=== PATIENT | male | born 1995 | race African-American/Black ===

== ENCOUNTER 2016-10-18 19:45 | Inpatient (IN) | payer SELFPAY ==
[~2016-10-18] VITALS: Ht 188 cm; Wt 82.1 kg
[2016-10-18] MEDS ORDERED: PROPOFOL 50 ML IV ONE (20:02)
[2016-10-18 20:06] LABS: BASO % 1 % (0-3); EOS % 1 % (0-3); HEMATOCRIT 48.6 % (39.0-53.0); HEMOGLOBIN 16.8 g/dL (13.0-17.5); LYMPH # 1.8 x10^3/uL (1.0-4.8); LYMPH % 41 % (24-48); MEAN CORPUSCULAR HEMOGLOBIN 29 pg (25-35); MEAN CORPUSCULAR HGB CONC 35 g/dL (31-37); MEAN CORPUSCULAR VOLUME 83 fL (79-100); MONO % 13 % (0-9); NEUT % 45 % (31-73); PLATELET COUNT 277 x10^3/uL (140-400); RED BLOOD COUNT 5.83 x10^6/uL (4.30-5.70); RED CELL DISTRIBUTION WIDTH 13.7 % (11.5-14.5); WHITE BLOOD COUNT 4.4 x10^3/uL (4.0-11.0)
[2016-10-18] MEDS: PROPOFOL 100 ML IV PRN ×2 (20:09→22:29)
[2016-10-18] MEDS: PROPOFOL 20 ML IV ONE ×2 (20:09→20:47)
[2016-10-18 20:14] LABS: CALCIUM 9.2 mg/dL (8.5-10.1); CREATININE 1.1 mg/dL (0.7-1.3); POTASSIUM 3.8 mmol/L (3.5-5.1)
[2016-10-18] MEDS ORDERED: ONDANSETRON PF 4 MG/2 ML VIAL. IV ONE (20:15)
[2016-10-18] MEDS ORDERED: IV NORMAL SALINE 1000ML BAG 1,000 ML IV ONE (20:15)
[2016-10-18] MEDS ORDERED: SUCCINYLCHOLINE 200 MG/10 ML VIAL. IV ONE (20:15)
[2016-10-18] MEDS ORDERED: ETOMIDATE 20 MG/10 ML VIAL. IV ONE (20:15)
[2016-10-18 20:26] LABS: ALBUMIN 4.1 g/dL (3.4-5.0); ALBUMIN/GLOBULIN RATIO 0.8 (1.0-1.7); TOTAL BILIRUBIN 0.4 mg/dL (0.2-1.0); TOTAL PROTEIN 9.2 g/dL (6.4-8.2)
[2016-10-18 20:41] LABS: ETHANOL 340 mg/dL (0-10)
--- NOTE | 2016-10-18 20:41 | PHYS DOC ---
Adult General Chief Complaint Chief Complaint: SEIZURE HPI HPI 21-year-old male who presents in status epilepticus by EMS. Upon EMS arrival, the patient was actively convulsing and having seizure-like activity. 2 IM doses of Versed were given without relief of seizure activity. Patient presents actively convulsing and seizing and cannot provide an adequate history. 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 She is unsure if there is any other significant past medical problems. Review of Systems Review of Systems A 10 point review systems is unable to be obtained secondary to the patient's underlying mental status. Current Medications Current Medications Current Medications Medications (Trade) Dose Ordered Sig/Wilder Start Time Stop Time Status Last Admin Dose Admin Etomidate (Amidate) 20 mg 1X ONCE 10/18/16 20:15 10/18/16 20:16 DC 10/18/16 19:55 20 MG Lorazepam (Ativan) 2 mg 1X ONCE 10/18/16 20:15 10/18/16 20:16 DC 10/18/16 19:45 2 MG Ondansetron HCl (Zofran) 4 mg 1X ONCE 10/18/16 20:15 10/18/16 20:16 DC 10/18/16 19:53 4 MG Propofol 20 ml @ 0 mls/hr 1X ONCE 10/18/16 20:15 10/18/16 20:16 DC 10/18/16 20:47 3 MLS/HR Sodium Chloride 1,000 ml @ 1,000 mls/hr 1X ONCE 10/18/16 20:15 10/18/16 21:14 DC 10/18/16 20:20 1,000 MLS/HR Succinylcholine Chloride (Anectine) 100 mg 1X ONCE 10/18/16 20:15 10/18/16 20:16 DC 10/18/16 19:55 100 MG Allergies Allergies Allergies Coded Allergies Type Severity Reaction Last Updated Verified Unable to Assess 10/18/16 No Physical Exam Physical Exam Constitutional: Well developed, well nourished, moderate distress, actively seizing [] HENT: Normocephalic, atraumatic, bilateral external ears normal, oropharynx moist, no oral exudates, nose normal. [] Eyes: PERRLA, conjunctiva normal, no discharge. [] Neck: Normal range of motion, no tenderness, supple, no stridor. [] Cardiovascular:Heart rate tachycardic regular rhythm, no murmur [] Lungs & Thorax: Bilateral breath sounds clear to auscultation [] Abdomen: Bowel sounds normal, soft, no tenderness, no masses, no pulsatile masses. [] Skin: Warm, dry, no erythema, no rash. [] Back: No tenderness, no CVA tenderness. [] Extremities: No tenderness, no cyanosis, no clubbing, ROM intact, no edema. [] Neurologic: No focal deficits are noted, actively convulsing. [] Current Patient Data Vital Signs Vital Signs Date Time Temp Pulse Resp B/P (MAP) Pulse Ox O2 Delivery O2 Flow Rate FiO2 10/18/16 19:45 98.0 101 139/65 (89) 100 NonRebreather Mask 98.0 Lab Values Laboratory Tests Test 10/18/16 19:50 White Blood Count 4.4 x10^3/uL (4.0-11.0) Red Blood Count 5.83 x10^6/uL (4.30-5.70) H Hemoglobin 16.8 g/dL (13.0-17.5) Hematocrit 48.6 % (39.0-53.0) Mean Corpuscular Volume 83 fL (79-100) Mean Corpuscular Hemoglobin 29 pg (25-35) Mean Corpuscular Hemoglobin Concent 35 g/dL (31-37) Red Cell Distribution Width 13.7 % (11.5-14.5) Platelet Count 277 x10^3/uL (140-400) Neutrophils (%) (Auto) 45 % (31-73) Lymphocytes (%) (Auto) 41 % (24-48) Monocytes (%) (Auto) 13 % (0-9) H Eosinophils (%) (Auto) 1 % (0-3) Basophils (%) (Auto) 1 % (0-3) Neutrophils # (Auto) 2.0 x10^3uL (1.8-7.7) Lymphocytes # (Auto) 1.8 x10^3/uL (1.0-4.8) Monocytes # (Auto) 0.6 x10^3/uL (0.0-1.1) Eosinophils # (Auto) 0.1 x10^3/uL (0.0-0.7) Basophils # (Auto) 0.0 x10^3/uL (0.0-0.2) Sodium Level 139 mmol/L (136-145) Potassium Level 3.8 mmol/L (3.5-5.1) Chloride Level 100 mmol/L (98-107) Carbon Dioxide Level 27 mmol/L (21-32) Anion Gap 12 (6-14) Blood Urea Nitrogen 11 mg/dL (8-26) Creatinine 1.1 mg/dL (0.7-1.3) Estimated GFR (Cockcroft-Gault) 83.0 BUN/Creatinine Ratio 10 (6-20) Glucose Level 85 mg/dL (70-99) Lactic Acid Level 4.0 mmol/L (0.4-2.0) *H Calcium Level 9.2 mg/dL (8.5-10.1) Total Bilirubin 0.4 mg/dL (0.2-1.0) Aspartate Amino Transferase (AST) 54 U/L (15-37) H Alanine Aminotransferase (ALT) 115 U/L (16-63) H Alkaline Phosphatase 71 U/L (46-116) Troponin I Quantitative < 0.017 ng/mL (0.000-0.055) Total Protein 9.2 g/dL (6.4-8.2) H Albumin 4.1 g/dL (3.4-5.0) Albumin/Globulin Ratio 0.8 (1.0-1.7) L Salicylates Level < 2.8 mg/dL (2.8-20.0) L Salicylate Last Dose Date Unk Salicylate Last Dose Time Unk Acetaminophen Level < 2 mcg/ml (10-30) L Acetaminophen Last Dose Date Unk Acetaminophen Last Dose Time Unk Ethyl Alcohol Level 340 mg/dL (0-10) H Laboratory Tests 10/18/16 19:50 Laboratory Tests 10/18/16 19:50 EKG EKG EKG as interpreted by me shows a sinus rhythm with rate of 93 bpm. There are some ST abnormalities noted in several leads including aVL, V2 and V1. There is no obvious injury pattern. This EKG does not meet STEMI criteria Radiology/Procedures Radiology/Procedures One view of the chest as interpreted by me does not reveal an acute cardiopulmonary process. ET tube is approximately 3-4 cm above the mark. Course & Med Decision Making Course & Med Decision Making Pertinent Labs and Imaging studies reviewed. (See chart for details) Patient presented in status epilepticus at 2 mg of Ativan given without cessation of seizure activity. He was placed in c-spine precautions. Patient was immediately intubated to protect his airway and to sedate him for his ongoing seizure activity. A portable view of his chest demonstrates ET tube in appropriate position. His laboratory workup reveals an elevated serum ethanol level as well as an elevated serum lactate. At this time a working theory is that his seizures are from his ethanol use. He is afebrile. A CT of his head and neck did not reveal any acute injuries. Patient is currently on to prevent drip for his ongoing seizure activity as well as sedation. His laboratory workup reveals an elevated serum ethanol and serum lactate. The rest of his toxicology screen was unremarkable. His case was discussed with the hospitalist, Dr. Orozco, who agreed to admit to the ICU for further management. A neurology consult was placed. Patient maintained on propofol. His vital signs are stable his blood pressure and heart rate have improved on sedation. Approximately 30 minutes of critical care time were used in consultation with specialists. Dragon Disclaimer Dragon Disclaimer This electronic medical record was generated, in whole or in part, using a voice recognition dictation system. Critical Care Time Critical care time was 30 minutes exclusive of procedures. Intubation Procedure Intub Indication: Respiratory failure Consent: Unable to give consent due to emergent nature. Medications Used: see nursing note Procedure: The patient was placed in the appropriate position. Intubation was performed with direct visualization of vocal cords and a 7.5 endotracheal tube was placed. ET tube was secured. Initial confirmation of placement included bilateral breath sounds, tube fogging, adequate chest rise, adequate pulse oximetry reading. A chest x-ray to verify correct placement of the tube showed appropriate tube position. The patient tolerated the procedure well. Complications: none. Departure Departure Impression: Primary Impression: Status epilepticus Disposition: ADMITTED INPATIENT Admitting Physician: Kev Orozco Condition: CRITICAL Referrals: NO PCP (PCP) TEODORA GORDON DO October 18, 2016 20:40
[2016-10-18] MEDS ORDERED: ONDANSETRON PF 4 MG/2 ML VIAL. IV PRN (20:45)
[2016-10-18 20:46] LABS: BARBITURATES NEG (NEG); BENZODIAZEPINES POS (NEG); CANNABINOIDS NEG (NEG); COCAINE NEG (NEG); METHADONE NEG (NEG); OPIATES NEG (NEG); PHENCYCLIDINE NEG (NEG)
--- NOTE | 2016-10-18 21:08 | ACF ---
Admit Criteria Forms Admit Criteria Forms Admit Criteria Forms SEIZURE Clinical Indications for Admission to Inpatient Care (Place 'X' for any and all applicable criteria): Admission is indicated for seizure and ANY ONE of the following(1)(2)(3)(4)(5): [ ]I. Inpatient admission required rather than observation care (Also use Seizure: Observation Care Criteria as appropriate) because of ANY ONE of the following: [ ]a) Altered mental status that is severe or persistent [ ]b) New focal neurologic deficit that is severe or persistent [ ]c) Metabolic disorder (eg, hypoglycemia, hyponatremia) that is severe or persistent [ ]d) Recurrent seizure [ ]e) Outpatient antiseizure regimen cannot be established (eg , patient cannot tolerate medication, initiation requires inpatient care) [ ]f) Need for ongoing intravenous infusion of antiseizure medication [ ]g) Cardiac arrhythmias of immediate concern [ ]h) Cerebral bleeding, hydrocephalus, or vasospasm monitoring (14) [ ]i) Increased intracranial pressure or cerebral edema monitoring (15) [ ]j) Other treatment or monitoring requiring inpatient admission [X ]II. Status epilepticus [A] or repetitive seizures not controlled with emergent treatment (6)(8) [ ]III. Brain disorder (eg, tumor, edema, and hydrocephalus) that requiring monitoring or intervention available only at inpatient level of care. [ ]IV. Brain insult (eg, severe trauma, stroke, drug toxicity, or withdrawal) that requires monitoring or intervention available only at inpatient level of care (10)(11) Extended stay beyond goal length of stay may be needed for (22) [ ]a) Complications of status epilepticus [ ]b) Refractory status epilepticus [ ]c) Etiology-specific therapy for conditions such as INVENTORY CLERK infection, head injury,eclampsia, severe metabolic abnormalities, and brain tumor [ ]d) Residual neurologic damage, [ ]e) Initiation of significant change to anticonvulsant treatment [ ]f) Older patients (65 years or older) [ ]g) Patient requiring intubation (eg, to protect airway) The original [facility] content created by [employer] has been revised. The portions of the content which have been revised are identified through the use of italic text or in bold, and [facility] [employer] has neither reviewed nor approved the modified material. All other unmodified content is copyright [employer]. Please see references footnoted in the original [facility] edition 2016 VENECIA NEWBY October 18, 2016 21:08
--- NOTE | 2016-10-18 21:23 | RAD ---
PROCEDURE Noncontrast head CT Noncontrast cervical spine CT] HISTORY Seizures. Fall. Altered mental status. Neck pain. TECHNIQUE Noncontrast axial cross sectional CT scanning of the head was performed. Noncontrast helical CT scanning of the cervical spine was performed. Multiplanar 2D reconstructions were generated. One or more of the following individualized dose reduction techniques were utilized for this study: 1. Automated exposure control 2. Adjustment of the mA and/or kV according to patient size 3. Use of iterative reconstruction technique COMPARISON None available. FINDINGS Head CT: No acute intracranial hemorrhage or midline shift or mass-effect or hydrocephalus or extra-axial fluid collection is seen. No focal hypodense area is seen to indicate an acute infarct or edema radiographically. No skull fracture or pneumocephalus is seen. No opacification of the mastoid sinuses or the paranasal sinuses is seen. There is mild mucosal thickening of the posterior wall of the left maxillary sinus. The maxillary sinuses are not completely seen in this study. Cervical spine CT: Significant patient motion artifact is seen. The patient is intubated and is fighting during the scan. This significantly degrades this study. Alignment cannot be evaluated. Fracture cannot be excluded. No definite fracture is seen on this study however. IMPRESSION Head CT: No acute intracranial abnormality is seen. Cervical spine CT: Limited exam due to significant patient motion artifact which significantly degrades this study. If there is still strong clinical concern for a neck fracture, then a repeat study may be needed. Electronically signed by: Catracho Higuera MD (October 18, 2016 21:21:52)
[2016-10-18 22:00] VITALS: BP 117/79
[2016-10-18] MEDS: IV NORMAL SALINE 1000ML BAG 1,000 ML IV SCH (22:28)
[2016-10-18 23:00] VITALS: BP 107/77
[2016-10-18 23:27] LABS: HCO3 ABG 25 mmol/L (21-28); PCO2 ABG 40 mmHg (35-46); PH ABG 7.42 (7.35-7.45); PO2 ABG 228 mmHg (85-108); SAT O2 ABG 99 % (92-99)
[2016-10-18 23:28] LABS: FIO2 ABG 40
[2016-10-19] VITALS (21 sets, daily range): BP systolic 104–150; BP diastolic 66–91
[2016-10-19] MEDS ORDERED: ETOMIDATE 20 MG/10 ML VIAL. IV ONE (01:55)
--- NOTE | 2016-10-19 01:55 | HP ---
ADMIT DATE: 10/18/2016 CHIEF COMPLAINT: Seizure. HISTORY OF PRESENT ILLNESS: The patient is a pleasant 21-year-old male who is with a new girlfriend, she witnessed the seizure. She called EMS. He was brought to the ER. His girlfriend who really does not even know him very well, ____ last night. We really do not have much medical history on him here. She states before he had the seizure, he actually did tell her that he has had previous seizures in the past related to his alcohol use. The patient has now been admitted in the ER. We are planning to admit him to the ICU with consultation to Pulmonary Medicine and Neurology. PAST MEDICAL HISTORY: Unknown other than seizures and probable alcohol use. ALLERGIES: Unknown. FAMILY HISTORY: Unknown. SOCIAL HISTORY: Unknown. MEDICATIONS: Unknown. REVIEW OF SYSTEMS: Unobtainable. PHYSICAL EXAMINATION: VITAL SIGNS: Temperature afebrile, pulse 110, respirations 18. He is on the vent. Blood pressure is 162/70. GENERAL: He is sedated on the vent. HEART: Tachycardic, S1, S2. LUNGS: Coarse. ABDOMEN: Soft, decreased bowel sounds. EXTREMITIES: No edema. SKIN: No rashes. ENDOCRINE: No thyromegaly. LYMPHATICS: No cervical nodes. HEMATOPOIETIC: No bruising. HEENT: The pupils are pinpoint. ASSESSMENT AND PLAN: Seizure with status epilepticus with respiratory failure. The patient is now intubated, will admit to the ICU. Consult Pulmonary Medicine, p.r.nDangelo Perera, cardiac monitoring. Will probably need antiepileptic medications, but await Neurology input. PROGNOSIS: Guarded. MINOO ARNOLD DO DR: RYAN/shine JOB#: [id number] / [id number]
[2016-10-19] MEDS ORDERED: SUCCINYLCHOLINE 200 MG/10 ML VIAL. ONE (01:56)
[2016-10-19] MEDS: PROPOFOL 100 ML IV PRN ×3 (02:26→10:04)
[2016-10-19] MEDS: IV NORMAL SALINE 1000ML BAG 1,000 ML IV SCH (02:26)
[2016-10-19 03:08] LABS: BASO % 0 % (0-3); EOS % 2 % (0-3); HEMATOCRIT 45.9 % (39.0-53.0); HEMOGLOBIN 15.8 g/dL (13.0-17.5); LYMPH # 1.6 x10^3/uL (1.0-4.8); LYMPH % 49 % (24-48); MEAN CORPUSCULAR HEMOGLOBIN 29 pg (25-35); MEAN CORPUSCULAR HGB CONC 34 g/dL (31-37); MEAN CORPUSCULAR VOLUME 84 fL (79-100); MONO % 15 % (0-9); NEUT % 34 % (31-73); PLATELET COUNT 238 x10^3/uL (140-400); RED BLOOD COUNT 5.49 x10^6/uL (4.30-5.70); RED CELL DISTRIBUTION WIDTH 13.7 % (11.5-14.5); WHITE BLOOD COUNT 3.2 x10^3/uL (4.0-11.0)
[2016-10-19 03:25] LABS: CALCIUM 8.7 mg/dL (8.5-10.1); CREATININE 0.9 mg/dL (0.7-1.3); GFR 126.5
--- NOTE | 2016-10-19 06:20 | EKG ---
[facility] [address] [place] [address] Test Date: 2016-10-18 Test Time: 20:19:38 Pat Name: MONAE ALCANTAR Department: Room: 105 1 Gender: M [employer]: : 1995 Requested By: EAN MOSELEY Order Number: [id number] Reading MD: Graham Harrington Measurements Intervals [place] Rate: 93 P: 65 NM: 154 QRS: -51 QRSD: 86 T: 39 QT: 336 QTc: 420 Interpretive Statements SINUS RHYTHM Electronically Signed On 10-20-2016 10:40:55 CDT by Graham Harrington
--- NOTE | 2016-10-19 08:10 | RAD ---
Portable chest, 10/18/2016: History: Post intubation evaluation An ET tube is in place with its tip lying approximately 6 cm above the mark. An NG tube extends into the stomach. The heart size and pulmonary vascularity are normal. No pulmonary infiltrates are seen. There is no evidence of pleural fluid or pneumothorax. IMPRESSION: 1. The ET tube and NG tube are in satisfactory positions. 2. No acute cardiopulmonary abnormality is detected.
[2016-10-19] MEDS ORDERED: MULTIVIT INFUSN,ADULT 4,VIT K 10 ML, THIAMINE 100 MG, FOLIC ACID 1 MG in IV NORMAL SALI... IV SCH (09:00)
--- NOTE | 2016-10-19 10:10 | PDOC ---
PROGRESS NOTES Chief Complaint Chief Complaint Seizure ASSESSMENT AND PLAN: 1. Seizure: prob EtOH related. blood level [address] Ewing's input 2. EtOH toxicity: W/D prevention protocol, banana bag. may need CIWA 3. Respir failure: intubated. management as per Dr Piedra 4. d/w twin brother: mother 7 yrs ago, pt has been in a "mental slump" since then. moved to from [facility] on his own. does not know anything about scripts found on pt from behavioral health clinic. not working, gets money ( and booze) from "friends" History of Present Illness History of Present Illness sedated, intubated Vitals Vitals Vital Signs Date Time Temp Pulse Resp B/P (MAP) Pulse Ox O2 Delivery O2 Flow Rate FiO2 10/19/16 09:48 93 20 119/71 (87) 98 Ventilator 10/19/16 08:10 15.0 10/19/16 07:15 97.7 97.7 Physical Exam General: Other (intubated sedated) Heart: Regular rate Lungs: Clear Abdomen: Normal bowel sounds, No tenderness Extremities: No edema Skin: No rashes Labs LABS Laboratory Tests Test 10/18/16 19:50 10/18/16 20:30 10/18/16 23:19 10/18/16 23:40 White Blood Count 4.4 x10^3/uL (4.0-11.0) Red Blood Count 5.83 x10^6/uL (4.30-5.70) Hemoglobin 16.8 g/dL (13.0-17.5) Hematocrit 48.6 % (39.0-53.0) Mean Corpuscular Volume 83 fL (79-100) Mean Corpuscular Hemoglobin 29 pg (25-35) Mean Corpuscular Hemoglobin Concent 35 g/dL (31-37) Red Cell Distribution Width 13.7 % (11.5-14.5) Platelet Count 277 x10^3/uL (140-400) Neutrophils (%) (Auto) 45 % (31-73) Lymphocytes (%) (Auto) 41 % (24-48) Monocytes (%) (Auto) 13 % (0-9) Eosinophils (%) (Auto) 1 % (0-3) Basophils (%) (Auto) 1 % (0-3) Neutrophils # (Auto) 2.0 x10^3uL (1.8-7.7) Lymphocytes # (Auto) 1.8 x10^3/uL (1.0-4.8) Monocytes # (Auto) 0.6 x10^3/uL (0.0-1.1) Eosinophils # (Auto) 0.1 x10^3/uL (0.0-0.7) Basophils # (Auto) 0.0 x10^3/uL (0.0-0.2) Sodium Level 139 mmol/L (136-145) Potassium Level 3.8 mmol/L (3.5-5.1) Chloride Level 100 mmol/L (98-107) Carbon Dioxide Level 27 mmol/L (21-32) Anion Gap 12 (6-14) Blood Urea Nitrogen 11 mg/dL (8-26) Creatinine 1.1 mg/dL (0.7-1.3) Estimated GFR (Cockcroft-Gault) 83.0 BUN/Creatinine Ratio 10 (6-20) Glucose Level 85 mg/dL (70-99) Lactic Acid Level 4.0 mmol/L (0.4-2.0) 2.0 mmol/L (0.4-2.0) Calcium Level 9.2 mg/dL (8.5-10.1) Total Bilirubin 0.4 mg/dL (0.2-1.0) Aspartate Amino Transf (AST/SGOT) 54 U/L (15-37) Alanine Aminotransferase (ALT/SGPT) 115 U/L (16-63) Alkaline Phosphatase 71 U/L (46-116) Troponin I Quantitative < 0.017 ng/mL (0.000-0.055) Total Protein 9.2 g/dL (6.4-8.2) Albumin 4.1 g/dL (3.4-5.0) Albumin/Globulin Ratio 0.8 (1.0-1.7) Salicylates Level < 2.8 mg/dL (2.8-20.0) Salicylate Last Dose Date Unk Salicylate Last Dose Time Unk Acetaminophen Level < 2 mcg/ml (10-30) Acetaminophen Last Dose Date Unk Acetaminophen Last Dose Time Unk Ethyl Alcohol Level 340 mg/dL (0-10) Urine Opiates Screen Neg (NEG) Urine Methadone Screen Neg (NEG) Urine Barbiturates Neg (NEG) Urine Phencyclidine Screen Neg (NEG) Urine Amphetamine/Methamphetamine Neg (NEG) Urine Benzodiazepines Screen Pos (NEG) Urine Cocaine Screen Neg (NEG) Urine Cannabinoids Screen Neg (NEG) Urine Ethyl Alcohol Pos (NEG) O2 Saturation 99 % (92-99) Arterial Blood pH 7.42 (7.35-7.45) Arterial Blood pCO2 at Patient Temp 40 mmHg (35-46) Arterial Blood pO2 at Patient Temp 228 mmHg (85-108) Arterial Blood HCO3 25 mmol/L (21-28) Arterial Blood Base Excess 1 mmol/L (-3-3) FiO2 40 Test 10/19/16 02:45 White Blood Count 3.2 x10^3/uL (4.0-11.0) Red Blood Count 5.49 x10^6/uL (4.30-5.70) Hemoglobin 15.8 g/dL (13.0-17.5) Hematocrit 45.9 % (39.0-53.0) Mean Corpuscular Volume 84 fL (79-100) Mean Corpuscular Hemoglobin 29 pg (25-35) Mean Corpuscular Hemoglobin Concent 34 g/dL (31-37) Red Cell Distribution Width 13.7 % (11.5-14.5) Platelet Count 238 x10^3/uL (140-400) Neutrophils (%) (Auto) 34 % (31-73) Lymphocytes (%) (Auto) 49 % (24-48) Monocytes (%) (Auto) 15 % (0-9) Eosinophils (%) (Auto) 2 % (0-3) Basophils (%) (Auto) 0 % (0-3) Neutrophils # (Auto) 1.1 x10^3uL (1.8-7.7) Lymphocytes # (Auto) 1.6 x10^3/uL (1.0-4.8) Monocytes # (Auto) 0.5 x10^3/uL (0.0-1.1) Eosinophils # (Auto) 0.1 x10^3/uL (0.0-0.7) Basophils # (Auto) 0.0 x10^3/uL (0.0-0.2) Sodium Level 140 mmol/L (136-145) Potassium Level 4.0 mmol/L (3.5-5.1) Chloride Level 103 mmol/L (98-107) Carbon Dioxide Level 26 mmol/L (21-32) Anion Gap 11 (6-14) Blood Urea Nitrogen 12 mg/dL (8-26) Creatinine 0.9 mg/dL (0.7-1.3) Estimated GFR (Cockcroft-Gault) 126.5 Glucose Level 96 mg/dL (70-99) Calcium Level 8.7 mg/dL (8.5-10.1) Comment Review of Relevant I have reviewed the following items darrell (where applicable) has been applied. Labs Laboratory Tests Test 10/18/16 19:50 10/18/16 20:30 10/18/16 23:19 10/18/16 23:40 White Blood Count 4.4 x10^3/uL (4.0-11.0) Red Blood Count 5.83 x10^6/uL (4.30-5.70) Hemoglobin 16.8 g/dL (13.0-17.5) Hematocrit 48.6 % (39.0-53.0) Mean Corpuscular Volume 83 fL (79-100) Mean Corpuscular Hemoglobin 29 pg (25-35) Mean Corpuscular Hemoglobin Concent 35 g/dL (31-37) Red Cell Distribution Width 13.7 % (11.5-14.5) Platelet Count 277 x10^3/uL (140-400) Neutrophils (%) (Auto) 45 % (31-73) Lymphocytes (%) (Auto) 41 % (24-48) Monocytes (%) (Auto) 13 % (0-9) Eosinophils (%) (Auto) 1 % (0-3) Basophils (%) (Auto) 1 % (0-3) Neutrophils # (Auto) 2.0 x10^3uL (1.8-7.7) Lymphocytes # (Auto) 1.8 x10^3/uL (1.0-4.8) Monocytes # (Auto) 0.6 x10^3/uL (0.0-1.1) Eosinophils # (Auto) 0.1 x10^3/uL (0.0-0.7) Basophils # (Auto) 0.0 x10^3/uL (0.0-0.2) Sodium Level 139 mmol/L (136-145) Potassium Level 3.8 mmol/L (3.5-5.1) Chloride Level 100 mmol/L (98-107) Carbon Dioxide Level 27 mmol/L (21-32) Anion Gap 12 (6-14) Blood Urea Nitrogen 11 mg/dL (8-26) Creatinine 1.1 mg/dL (0.7-1.3) Estimated GFR (Cockcroft-Gault) 83.0 BUN/Creatinine Ratio 10 (6-20) Glucose Level 85 mg/dL (70-99) Lactic Acid Level 4.0 mmol/L (0.4-2.0) 2.0 mmol/L (0.4-2.0) Calcium Level 9.2 mg/dL (8.5-10.1) Total Bilirubin 0.4 mg/dL (0.2-1.0) Aspartate Amino Transf (AST/SGOT) 54 U/L (15-37) Alanine Aminotransferase (ALT/SGPT) 115 U/L (16-63) Alkaline Phosphatase 71 U/L (46-116) Troponin I Quantitative < 0.017 ng/mL (0.000-0.055) Total Protein 9.2 g/dL (6.4-8.2) Albumin 4.1 g/dL (3.4-5.0) Albumin/Globulin Ratio 0.8 (1.0-1.7) Salicylates Level < 2.8 mg/dL (2.8-20.0) Salicylate Last Dose Date Unk Salicylate Last Dose Time Unk Acetaminophen Level < 2 mcg/ml (10-30) Acetaminophen Last Dose Date Unk Acetaminophen Last Dose Time Unk Ethyl Alcohol Level 340 mg/dL (0-10) Urine Opiates Screen Neg (NEG) Urine Methadone Screen Neg (NEG) Urine Barbiturates Neg (NEG) Urine Phencyclidine Screen Neg (NEG) Urine Amphetamine/Methamphetamine Neg (NEG) Urine Benzodiazepines Screen Pos (NEG) Urine Cocaine Screen Neg (NEG) Urine Cannabinoids Screen Neg (NEG) Urine Ethyl Alcohol Pos (NEG) O2 Saturation 99 % (92-99) Arterial Blood pH 7.42 (7.35-7.45) Arterial Blood pCO2 at Patient Temp 40 mmHg (35-46) Arterial Blood pO2 at Patient Temp 228 mmHg (85-108) Arterial Blood HCO3 25 mmol/L (21-28) Arterial Blood Base Excess 1 mmol/L (-3-3) FiO2 40 Test 10/19/16 02:45 White Blood Count 3.2 x10^3/uL (4.0-11.0) Red Blood Count 5.49 x10^6/uL (4.30-5.70) Hemoglobin 15.8 g/dL (13.0-17.5) Hematocrit 45.9 % (39.0-53.0) Mean Corpuscular Volume 84 fL (79-100) Mean Corpuscular Hemoglobin 29 pg (25-35) Mean Corpuscular Hemoglobin Concent 34 g/dL (31-37) Red Cell Distribution Width 13.7 % (11.5-14.5) Platelet Count 238 x10^3/uL (140-400) Neutrophils (%) (Auto) 34 % (31-73) Lymphocytes (%) (Auto) 49 % (24-48) Monocytes (%) (Auto) 15 % (0-9) Eosinophils (%) (Auto) 2 % (0-3) Basophils (%) (Auto) 0 % (0-3) Neutrophils # (Auto) 1.1 x10^3uL (1.8-7.7) Lymphocytes # (Auto) 1.6 x10^3/uL (1.0-4.8) Monocytes # (Auto) 0.5 x10^3/uL (0.0-1.1) Eosinophils # (Auto) 0.1 x10^3/uL (0.0-0.7) Basophils # (Auto) 0.0 x10^3/uL (0.0-0.2) Sodium Level 140 mmol/L (136-145) Potassium Level 4.0 mmol/L (3.5-5.1) Chloride Level 103 mmol/L (98-107) Carbon Dioxide Level 26 mmol/L (21-32) Anion Gap 11 (6-14) Blood Urea Nitrogen 12 mg/dL (8-26) Creatinine 0.9 mg/dL (0.7-1.3) Estimated GFR (Cockcroft-Gault) 126.5 Glucose Level 96 mg/dL (70-99) Calcium Level 8.7 mg/dL (8.5-10.1) Laboratory Tests Test 10/18/16 19:50 10/18/16 20:30 10/18/16 23:19 10/18/16 23:40 White Blood Count 4.4 x10^3/uL (4.0-11.0) Red Blood Count 5.83 x10^6/uL (4.30-5.70) Hemoglobin 16.8 g/dL (13.0-17.5) Hematocrit 48.6 % (39.0-53.0) Mean Corpuscular Volume 83 fL (79-100) Mean Corpuscular Hemoglobin 29 pg (25-35) Mean Corpuscular Hemoglobin Concent 35 g/dL (31-37) Red Cell Distribution Width 13.7 % (11.5-14.5) Platelet Count 277 x10^3/uL (140-400) Neutrophils (%) (Auto) 45 % (31-73) Lymphocytes (%) (Auto) 41 % (24-48) Monocytes (%) (Auto) 13 % (0-9) Eosinophils (%) (Auto) 1 % (0-3) Basophils (%) (Auto) 1 % (0-3) Neutrophils # (Auto) 2.0 x10^3uL (1.8-7.7) Lymphocytes # (Auto) 1.8 x10^3/uL (1.0-4.8) Monocytes # (Auto) 0.6 x10^3/uL (0.0-1.1) Eosinophils # (Auto) 0.1 x10^3/uL (0.0-0.7) Basophils # (Auto) 0.0 x10^3/uL (0.0-0.2) Sodium Level 139 mmol/L (136-145) Potassium Level 3.8 mmol/L (3.5-5.1) Chloride Level 100 mmol/L (98-107) Carbon Dioxide Level 27 mmol/L (21-32) Anion Gap 12 (6-14) Blood Urea Nitrogen 11 mg/dL (8-26) Creatinine 1.1 mg/dL (0.7-1.3) Estimated GFR (Cockcroft-Gault) 83.0 BUN/Creatinine Ratio 10 (6-20) Glucose Level 85 mg/dL (70-99) Lactic Acid Level 4.0 mmol/L (0.4-2.0) 2.0 mmol/L (0.4-2.0) Calcium Level 9.2 mg/dL (8.5-10.1) Total Bilirubin 0.4 mg/dL (0.2-1.0) Aspartate Amino Transf (AST/SGOT) 54 U/L (15-37) Alanine Aminotransferase (ALT/SGPT) 115 U/L (16-63) Alkaline Phosphatase 71 U/L (46-116) Troponin I Quantitative < 0.017 ng/mL (0.000-0.055) Total Protein 9.2 g/dL (6.4-8.2) Albumin 4.1 g/dL (3.4-5.0) Albumin/Globulin Ratio 0.8 (1.0-1.7) Salicylates Level < 2.8 mg/dL (2.8-20.0) Salicylate Last Dose Date Unk Salicylate Last Dose Time Unk Acetaminophen Level < 2 mcg/ml (10-30) Acetaminophen Last Dose Date Unk Acetaminophen Last Dose Time Unk Ethyl Alcohol Level 340 mg/dL (0-10) Urine Opiates Screen Neg (NEG) Urine Methadone Screen Neg (NEG) Urine Barbiturates Neg (NEG) Urine Phencyclidine Screen Neg (NEG) Urine Amphetamine/Methamphetamine Neg (NEG) Urine Benzodiazepines Screen Pos (NEG) Urine Cocaine Screen Neg (NEG) Urine Cannabinoids Screen Neg (NEG) Urine Ethyl Alcohol Pos (NEG) O2 Saturation 99 % (92-99) Arterial Blood pH 7.42 (7.35-7.45) Arterial Blood pCO2 at Patient Temp 40 mmHg (35-46) Arterial Blood pO2 at Patient Temp 228 mmHg (85-108) Arterial Blood HCO3 25 mmol/L (21-28) Arterial Blood Base Excess 1 mmol/L (-3-3) FiO2 40 Test 10/19/16 02:45 White Blood Count 3.2 x10^3/uL (4.0-11.0) Red Blood Count 5.49 x10^6/uL (4.30-5.70) Hemoglobin 15.8 g/dL (13.0-17.5) Hematocrit 45.9 % (39.0-53.0) Mean Corpuscular Volume 84 fL (79-100) Mean Corpuscular Hemoglobin 29 pg (25-35) Mean Corpuscular Hemoglobin Concent 34 g/dL (31-37) Red Cell Distribution Width 13.7 % (11.5-14.5) Platelet Count 238 x10^3/uL (140-400) Neutrophils (%) (Auto) 34 % (31-73) Lymphocytes (%) (Auto) 49 % (24-48) Monocytes (%) (Auto) 15 % (0-9) Eosinophils (%) (Auto) 2 % (0-3) Basophils (%) (Auto) 0 % (0-3) Neutrophils # (Auto) 1.1 x10^3uL (1.8-7.7) Lymphocytes # (Auto) 1.6 x10^3/uL (1.0-4.8) Monocytes # (Auto) 0.5 x10^3/uL (0.0-1.1) Eosinophils # (Auto) 0.1 x10^3/uL (0.0-0.7) Basophils # (Auto) 0.0 x10^3/uL (0.0-0.2) Sodium Level 140 mmol/L (136-145) Potassium Level 4.0 mmol/L (3.5-5.1) Chloride Level 103 mmol/L (98-107) Carbon Dioxide Level 26 mmol/L (21-32) Anion Gap 11 (6-14) Blood Urea Nitrogen 12 mg/dL (8-26) Creatinine 0.9 mg/dL (0.7-1.3) Estimated GFR (Cockcroft-Gault) 126.5 Glucose Level 96 mg/dL (70-99) Calcium Level 8.7 mg/dL (8.5-10.1) Medications Current Medications Propofol 50 ml @ As Directed STK-MED ONCE IV ; Start 10/18/16 at 20:02; Stop at 20:03; Status DC Sodium Chloride 1,000 ml @ 1,000 mls/hr 1X ONCE IV Last administered on 20:20; Start 10/18/16 at 20:15; Stop 10/18/16 at 21:14; Status DC Propofol 20 ml @ 0 mls/hr 1X ONCE IV Last administered on 10/18/16 20:47; Start 10/18/16 at 20:15; Stop 10/18/16 at 20:16; Status DC Ondansetron HCl (Zofran) 4 mg 1X ONCE IV Last administered on 10/18/16 19:53 ; Start 10/18/16 at 20:15; Stop 10/18/16 at 20:16; Status DC Lorazepam (Ativan) 2 mg 1X ONCE IV Last administered on 10/18/16 19:45; Start 10/18/16 at 20:15; Stop 10/18/16 at 20:16; Status DC Etomidate (Amidate) 20 mg 1X ONCE IV Last administered on 10/18/16 19:55; Start 10/18/16 at 20:15; Stop 10/18/16 at 20:16; Status DC Succinylcholine Chloride (Anectine) 100 mg 1X ONCE IV Last administered on 19:55; Start 10/18/16 at 20:15; Stop 10/18/16 at 20:16; Status DC Ondansetron HCl (Zofran) 4 mg PRN Q8HRS PRN IV NAUSEA/VOMITING; Start 10/18/16 at 20:45; Stop 10/19/16 at 20:44 Sodium Chloride 1,000 ml @ 125 mls/hr Q8H IV Last administered on 10/19/16 02 :26; Start 10/18/16 at 20:42; Stop 10/19/16 at 09:09; Status DC Propofol 100 ml @ 0 mls/hr CONT PRN IV SEE I/O RECORD Last administered on 10/19 06:29; Start 10/18/16 at 21:15 Multivitamins 10 ml/Thiamine HCl 100 mg/Folic Acid 1 mg/Sodium Chloride 1,011.2 ml @ 100 mls/ hr DAILY IV Last administered on 10/19/16 09:26; Start at 09:00; Stop 10/20/16 at 08:59 Etomidate (Amidate) 20 mg STK-MED ONCE IV ; Start 10/19/16 at 01:55; Stop at 01:56; Status DC Succinylcholine Chloride (Anectine) 200 mg STK-MED ONCE .ROUTE ; Start 10/19/16 at 01:56; Stop 10/19/16 at 01:57; Status DC Levetiracetam 500 mg/Sodium Chloride 100 ml @ 400 mls/hr Q12HR IV Last administered on 10/19/16t 09:27; Start 10/19/16 at 09:00 Multivitamins 10 ml/Folic Acid 1 mg/Thiamine HCl 100 mg/Dextrose/ Sodium Chloride 1,011.2 ml @ 125 mls/ hr DAILY IV ; Start 10/20/16 at 09:00 Vitals/I & O Vital Sign - Last 24 Hours 10/18/16 10/18/16 10/18/16 10/18/16 19:45 19:47 19:53 19:58 Temp 98.0 98.0 Pulse 101 110 100 118 Resp 18 14 16 B/P (MAP) 139/65 (89) 139/65 (89) 137/65 (89) 158/78 (104) Pulse Ox 100 100 100 100 O2 Delivery NonRebreather Mask NonRebreather Mask NonRebreather Mask NonRebreather Mask O2 Flow Rate 15.0 15.0 15.0 10/18/16 10/18/16 10/18/16 10/18/16 20:03 20:08 20:14 20:19 Pulse 106 100 104 92 Resp 16 16 16 16 B/P (MAP) 152/77 (102) 146/77 (100) 139/78 (98) 128/69 (88) Pulse Ox 100 100 100 100 O2 Delivery NonRebreather Mask Ventilator Ventilator Ventilator O2 Flow Rate 15.0 10/18/16 10/18/16 10/18/16 10/18/16 20:24 20:29 20:39 20:44 Pulse 104 90 102 98 Resp 16 16 16 16 B/P (MAP) 130/77 (94) 125/72 (89) 123/97 (106) 134/94 (107) Pulse Ox 100 100 100 100 O2 Delivery Ventilator Ventilator Ventilator Ventilator 10/18/16 10/18/16 10/18/16 10/18/16 20:54 21:10 21:20 21:30 Pulse 86 84 82 80 Resp 16 16 16 16 B/P (MAP) 126/76 (93) 123/73 (90) 123/72 (89) 124/72 (89) Pulse Ox 100 100 100 100 O2 Delivery Ventilator Ventilator Ventilator Ventilator 10/18/16 10/18/16 10/18/16 10/18/16 21:40 21:45 21:50 22:00 Temp 97.5 97.5 Pulse 78 96 82 80 Resp 16 16 16 16 B/P (MAP) 123/74 (90) 152/97 (115) 133/83 (100) 117/79 (92) Pulse Ox 100 100 100 99 O2 Delivery Ventilator Ventilator Ventilator Ventilator 10/18/16 10/18/16 10/18/16 10/18/16 22:00 22:00 23:00 23:09 Pulse 80 78 Resp 16 16 B/P (MAP) 134/80 (98) 107/77 (87) Pulse Ox 99 100 99 99 O2 Delivery Ventilator Ventilator Ventilator Ventilator 10/18/16 10/19/16 10/19/16 10/19/16 23:27 00:01 01:00 01:25 Pulse 79 84 Resp 16 16 B/P (MAP) 104/71 (82) 121/79 (93) Pulse Ox 98 98 99 O2 Delivery Mechanical Ventilator Ventilator Ventilator Ventilator 10/19/16 10/19/16 10/19/16 10/19/16 02:00 03:00 03:13 04:00 Pulse 83 85 Resp 16 16 B/P (MAP) 122/72 (89) 116/77 (90) Pulse Ox 100 99 99 O2 Delivery Ventilator Ventilator Ventilator Mechanical Ventilator 10/19/16 10/19/16 10/19/16 10/19/16 04:00 05:00 05:25 06:00 Temp 98.2 98.2 Pulse 84 88 85 Resp 16 16 16 B/P (MAP) 110/75 (87) 117/77 (90) 121/82 (95) Pulse Ox 99 99 99 99 O2 Delivery Ventilator Ventilator Ventilator Ventilator 10/19/16 10/19/16 10/19/16 10/19/16 07:15 07:30 08:00 08:10 Temp 97.7 97.7 Pulse 89 97 Resp 16 20 B/P (MAP) 119/75 (90) 145/90 (108) Pulse Ox 98 97 98 O2 Delivery Ventilator Ventilator Ventilator Mechanical Ventilator O2 Flow Rate 15.0 10/19/16 10/19/16 09:27 09:48 Pulse 95 93 Resp 16 20 B/P (MAP) 134/91 (105) 119/71 (87) Pulse Ox 98 98 O2 Delivery Ventilator Ventilator Intake and Output 10/18/16 10/18/16 10/19/16 15:00 23:00 07:00 Intake Total 0 ml 1223 ml Output Total 1300 ml Balance 0 ml -77 ml JOHNNA NUÑEZ MD October 19, 2016 10:10
[2016-10-19] MEDS: LORazepam 1 MG TABLET PO SCH ×2 (10:15→17:02)
--- NOTE | 2016-10-19 10:18 | PDOC2 ---
NEUROLOGY CONSULT Date of Admission Date of Admission DATE: 10/19/16 TIME: 10:06 Reason for Consult Reason for Consult: Status epilepticus Referring Physician Referring Physician: Dr. Orozco Source Source: Caregiver, Chart review History of Present Illness History of Present Illness The patient is a 21-year-old right handed male with a history of alcohol- related seizures who had status epilepticus yesterday. He left a store with his girlfriend and fell down and started convulsing. Versed only minimally reduced the seizure activity. He was intubated and sedated in the emergency department and has had no further seizures. He is continued on ventilation and sedation but still is able to move and respond to voice. His twin brother tells me the patient has had several seizures in the past, especially when he was living in [place], and did have work up there. He was on a seizure medicine for a while , but he does not know any details. Currently he is not on seizure medications. He has been drinking alcohol heavily ever since the of his mother 2 years ago. Past Medical History Cardiovascular: HTN CENTRAL NERVOUS SYSTEM: Seizure Psych: Addictions, Depression Past Surgical History Past Surgical History: No pertinent history Family History Family History: No pertinent hx (No history of seizures) Social History Social History Unemployed, homeless, drinks alcohol heavily, rare tobacco, no street drugs Current Medications Current Medications Current Medications Propofol 50 ml @ As Directed STK-MED ONCE IV ; Start 10/18/16 at 20:02; Stop at 20:03; Status DC Sodium Chloride 1,000 ml @ 1,000 mls/hr 1X ONCE IV Last administered on 20:20; Start 10/18/16 at 20:15; Stop 10/18/16 at 21:14; Status DC Propofol 20 ml @ 0 mls/hr 1X ONCE IV Last administered on 10/18/16 20:47; Start 10/18/16 at 20:15; Stop 10/18/16 at 20:16; Status DC Ondansetron HCl (Zofran) 4 mg 1X ONCE IV Last administered on 10/18/16 19:53 ; Start 10/18/16 at 20:15; Stop 10/18/16 at 20:16; Status DC Lorazepam (Ativan) 2 mg 1X ONCE IV Last administered on 10/18/16 19:45; Start 10/18/16 at 20:15; Stop 10/18/16 at 20:16; Status DC Etomidate (Amidate) 20 mg 1X ONCE IV Last administered on 10/18/16 19:55; Start 10/18/16 at 20:15; Stop 10/18/16 at 20:16; Status DC Succinylcholine Chloride (Anectine) 100 mg 1X ONCE IV Last administered on 19:55; Start 10/18/16 at 20:15; Stop 10/18/16 at 20:16; Status DC Ondansetron HCl (Zofran) 4 mg PRN Q8HRS PRN IV NAUSEA/VOMITING; Start 10/18/16 at 20:45; Stop 10/19/16 at 20:44 Sodium Chloride 1,000 ml @ 125 mls/hr Q8H IV Last administered on 10/19/16 02 :26; Start 10/18/16 at 20:42; Stop 10/19/16 at 09:09; Status DC Propofol 100 ml @ 0 mls/hr CONT PRN IV SEE I/O RECORD Last administered on 10/19 10:04; Start 10/18/16 at 21:15 Multivitamins 10 ml/Thiamine HCl 100 mg/Folic Acid 1 mg/Sodium Chloride 1,011.2 ml @ 100 mls/ hr DAILY IV Last administered on 10/19/16 09:26; Start at 09:00; Stop 10/20/16 at 08:59 Etomidate (Amidate) 20 mg STK-MED ONCE IV ; Start 10/19/16 at 01:55; Stop at 01:56; Status DC Succinylcholine Chloride (Anectine) 200 mg STK-MED ONCE .ROUTE ; Start 10/19/16 at 01:56; Stop 10/19/16 at 01:57; Status DC Levetiracetam 500 mg/Sodium Chloride 100 ml @ 400 mls/hr Q12HR IV Last administered on 10/19/16 09:27; Start 10/19/16 at 09:00 Multivitamins 10 ml/Folic Acid 1 mg/Thiamine HCl 100 mg/Dextrose/ Sodium Chloride 1,011.2 ml @ 125 mls/ hr DAILY IV ; Start 10/20/16 at 09:00 Allergies Allergies: Coded Allergies: No Known Drug Allergies (Unverified , 10/19/16) ROS Review of System Negative for fevers, chills, weight loss, shortness of breath, chest pain, indigestion, hematochezia, melena, dysuria. Full 14-point review systems is negative. Physical Exam Physical Examination PHYSICAL EXAMINATION: Vital signs: see above. General appearance is normal and in no acute distress. HEENT: Normocephalic and nontraumatic. Eyes, nose, ears, and throat are unremarkable. Neck is supple. No lymphadenopathy. No bruits are heard over the carotid artery. No crepitus. NEUROLOGIC: The patient is intubated and sedated in the intensive care unit, but he does move to voice, all extremities. Pupils react to light. He has spontaneous extraocular movements. Reflexes are 1+ with silent plantar responses. Vitals VITALS Vital Signs Date Time Temp Pulse Resp B/P (MAP) Pulse Ox O2 Delivery O2 Flow Rate FiO2 10/19/16 09:48 93 20 119/71 (87) 98 Ventilator 10/19/16 08:10 15.0 10/19/16 07:15 97.7 97.7 Labs Labs Laboratory Tests Test 10/18/16 19:50 10/18/16 20:30 10/18/16 23:19 10/18/16 23:40 White Blood Count 4.4 x10^3/uL (4.0-11.0) Red Blood Count 5.83 x10^6/uL (4.30-5.70) Hemoglobin 16.8 g/dL (13.0-17.5) Hematocrit 48.6 % (39.0-53.0) Mean Corpuscular Volume 83 fL (79-100) Mean Corpuscular Hemoglobin 29 pg (25-35) Mean Corpuscular Hemoglobin Concent 35 g/dL (31-37) Red Cell Distribution Width 13.7 % (11.5-14.5) Platelet Count 277 x10^3/uL (140-400) Neutrophils (%) (Auto) 45 % (31-73) Lymphocytes (%) (Auto) 41 % (24-48) Monocytes (%) (Auto) 13 % (0-9) Eosinophils (%) (Auto) 1 % (0-3) Basophils (%) (Auto) 1 % (0-3) Neutrophils # (Auto) 2.0 x10^3uL (1.8-7.7) Lymphocytes # (Auto) 1.8 x10^3/uL (1.0-4.8) Monocytes # (Auto) 0.6 x10^3/uL (0.0-1.1) Eosinophils # (Auto) 0.1 x10^3/uL (0.0-0.7) Basophils # (Auto) 0.0 x10^3/uL (0.0-0.2) Sodium Level 139 mmol/L (136-145) Potassium Level 3.8 mmol/L (3.5-5.1) Chloride Level 100 mmol/L (98-107) Carbon Dioxide Level 27 mmol/L (21-32) Anion Gap 12 (6-14) Blood Urea Nitrogen 11 mg/dL (8-26) Creatinine 1.1 mg/dL (0.7-1.3) Estimated GFR (Cockcroft-Gault) 83.0 BUN/Creatinine Ratio 10 (6-20) Glucose Level 85 mg/dL (70-99) Lactic Acid Level 4.0 mmol/L (0.4-2.0) 2.0 mmol/L (0.4-2.0) Calcium Level 9.2 mg/dL (8.5-10.1) Total Bilirubin 0.4 mg/dL (0.2-1.0) Aspartate Amino Transf (AST/SGOT) 54 U/L (15-37) Alanine Aminotransferase (ALT/SGPT) 115 U/L (16-63) Alkaline Phosphatase 71 U/L (46-116) Troponin I Quantitative < 0.017 ng/mL (0.000-0.055) Total Protein 9.2 g/dL (6.4-8.2) Albumin 4.1 g/dL (3.4-5.0) Albumin/Globulin Ratio 0.8 (1.0-1.7) Salicylates Level < 2.8 mg/dL (2.8-20.0) Salicylate Last Dose Date Unk Salicylate Last Dose Time Unk Acetaminophen Level < 2 mcg/ml (10-30) Acetaminophen Last Dose Date Unk Acetaminophen Last Dose Time Unk Ethyl Alcohol Level 340 mg/dL (0-10) Urine Opiates Screen Neg (NEG) Urine Methadone Screen Neg (NEG) Urine Barbiturates Neg (NEG) Urine Phencyclidine Screen Neg (NEG) Urine Amphetamine/Methamphetamine Neg (NEG) Urine Benzodiazepines Screen Pos (NEG) Urine Cocaine Screen Neg (NEG) Urine Cannabinoids Screen Neg (NEG) Urine Ethyl Alcohol Pos (NEG) O2 Saturation 99 % (92-99) Arterial Blood pH 7.42 (7.35-7.45) Arterial Blood pCO2 at Patient Temp 40 mmHg (35-46) Arterial Blood pO2 at Patient Temp 228 mmHg (85-108) Arterial Blood HCO3 25 mmol/L (21-28) Arterial Blood Base Excess 1 mmol/L (-3-3) FiO2 40 Test 10/19/16 02:45 White Blood Count 3.2 x10^3/uL (4.0-11.0) Red Blood Count 5.49 x10^6/uL (4.30-5.70) Hemoglobin 15.8 g/dL (13.0-17.5) Hematocrit 45.9 % (39.0-53.0) Mean Corpuscular Volume 84 fL (79-100) Mean Corpuscular Hemoglobin 29 pg (25-35) Mean Corpuscular Hemoglobin Concent 34 g/dL (31-37) Red Cell Distribution Width 13.7 % (11.5-14.5) Platelet Count 238 x10^3/uL (140-400) Neutrophils (%) (Auto) 34 % (31-73) Lymphocytes (%) (Auto) 49 % (24-48) Monocytes (%) (Auto) 15 % (0-9) Eosinophils (%) (Auto) 2 % (0-3) Basophils (%) (Auto) 0 % (0-3) Neutrophils # (Auto) 1.1 x10^3uL (1.8-7.7) Lymphocytes # (Auto) 1.6 x10^3/uL (1.0-4.8) Monocytes # (Auto) 0.5 x10^3/uL (0.0-1.1) Eosinophils # (Auto) 0.1 x10^3/uL (0.0-0.7) Basophils # (Auto) 0.0 x10^3/uL (0.0-0.2) Sodium Level 140 mmol/L (136-145) Potassium Level 4.0 mmol/L (3.5-5.1) Chloride Level 103 mmol/L (98-107) Carbon Dioxide Level 26 mmol/L (21-32) Anion Gap 11 (6-14) Blood Urea Nitrogen 12 mg/dL (8-26) Creatinine 0.9 mg/dL (0.7-1.3) Estimated GFR (Cockcroft-Gault) 126.5 Glucose Level 96 mg/dL (70-99) Calcium Level 8.7 mg/dL (8.5-10.1) Laboratory Tests Test 10/18/16 19:50 10/18/16 20:30 10/18/16 23:19 10/18/16 23:40 White Blood Count 4.4 x10^3/uL (4.0-11.0) Red Blood Count 5.83 x10^6/uL (4.30-5.70) Hemoglobin 16.8 g/dL (13.0-17.5) Hematocrit 48.6 % (39.0-53.0) Mean Corpuscular Volume 83 fL (79-100) Mean Corpuscular Hemoglobin 29 pg (25-35) Mean Corpuscular Hemoglobin Concent 35 g/dL (31-37) Red Cell Distribution Width 13.7 % (11.5-14.5) Platelet Count 277 x10^3/uL (140-400) Neutrophils (%) (Auto) 45 % (31-73) Lymphocytes (%) (Auto) 41 % (24-48) Monocytes (%) (Auto) 13 % (0-9) Eosinophils (%) (Auto) 1 % (0-3) Basophils (%) (Auto) 1 % (0-3) Neutrophils # (Auto) 2.0 x10^3uL (1.8-7.7) Lymphocytes # (Auto) 1.8 x10^3/uL (1.0-4.8) Monocytes # (Auto) 0.6 x10^3/uL (0.0-1.1) Eosinophils # (Auto) 0.1 x10^3/uL (0.0-0.7) Basophils # (Auto) 0.0 x10^3/uL (0.0-0.2) Sodium Level 139 mmol/L (136-145) Potassium Level 3.8 mmol/L (3.5-5.1) Chloride Level 100 mmol/L (98-107) Carbon Dioxide Level 27 mmol/L (21-32) Anion Gap 12 (6-14) Blood Urea Nitrogen 11 mg/dL (8-26) Creatinine 1.1 mg/dL (0.7-1.3) Estimated GFR (Cockcroft-Gault) 83.0 BUN/Creatinine Ratio 10 (6-20) Glucose Level 85 mg/dL (70-99) Lactic Acid Level 4.0 mmol/L (0.4-2.0) 2.0 mmol/L (0.4-2.0) Calcium Level 9.2 mg/dL (8.5-10.1) Total Bilirubin 0.4 mg/dL (0.2-1.0) Aspartate Amino Transf (AST/SGOT) 54 U/L (15-37) Alanine Aminotransferase (ALT/SGPT) 115 U/L (16-63) Alkaline Phosphatase 71 U/L (46-116) Troponin I Quantitative < 0.017 ng/mL (0.000-0.055) Total Protein 9.2 g/dL (6.4-8.2) Albumin 4.1 g/dL (3.4-5.0) Albumin/Globulin Ratio 0.8 (1.0-1.7) Salicylates Level < 2.8 mg/dL (2.8-20.0) Salicylate Last Dose Date Unk Salicylate Last Dose Time Unk Acetaminophen Level < 2 mcg/ml (10-30) Acetaminophen Last Dose Date Unk Acetaminophen Last Dose Time Unk Ethyl Alcohol Level 340 mg/dL (0-10) Urine Opiates Screen Neg (NEG) Urine Methadone Screen Neg (NEG) Urine Barbiturates Neg (NEG) Urine Phencyclidine Screen Neg (NEG) Urine Amphetamine/Methamphetamine Neg (NEG) Urine Benzodiazepines Screen Pos (NEG) Urine Cocaine Screen Neg (NEG) Urine Cannabinoids Screen Neg (NEG) Urine Ethyl Alcohol Pos (NEG) O2 Saturation 99 % (92-99) Arterial Blood pH 7.42 (7.35-7.45) Arterial Blood pCO2 at Patient Temp 40 mmHg (35-46) Arterial Blood pO2 at Patient Temp 228 mmHg (85-108) Arterial Blood HCO3 25 mmol/L (21-28) Arterial Blood Base Excess 1 mmol/L (-3-3) FiO2 40 Test 10/19/16 02:45 White Blood Count 3.2 x10^3/uL (4.0-11.0) Red Blood Count 5.49 x10^6/uL (4.30-5.70) Hemoglobin 15.8 g/dL (13.0-17.5) Hematocrit 45.9 % (39.0-53.0) Mean Corpuscular Volume 84 fL (79-100) Mean Corpuscular Hemoglobin 29 pg (25-35) Mean Corpuscular Hemoglobin Concent 34 g/dL (31-37) Red Cell Distribution Width 13.7 % (11.5-14.5) Platelet Count 238 x10^3/uL (140-400) Neutrophils (%) (Auto) 34 % (31-73) Lymphocytes (%) (Auto) 49 % (24-48) Monocytes (%) (Auto) 15 % (0-9) Eosinophils (%) (Auto) 2 % (0-3) Basophils (%) (Auto) 0 % (0-3) Neutrophils # (Auto) 1.1 x10^3uL (1.8-7.7) Lymphocytes # (Auto) 1.6 x10^3/uL (1.0-4.8) Monocytes # (Auto) 0.5 x10^3/uL (0.0-1.1) Eosinophils # (Auto) 0.1 x10^3/uL (0.0-0.7) Basophils # (Auto) 0.0 x10^3/uL (0.0-0.2) Sodium Level 140 mmol/L (136-145) Potassium Level 4.0 mmol/L (3.5-5.1) Chloride Level 103 mmol/L (98-107) Carbon Dioxide Level 26 mmol/L (21-32) Anion Gap 11 (6-14) Blood Urea Nitrogen 12 mg/dL (8-26) Creatinine 0.9 mg/dL (0.7-1.3) Estimated GFR (Cockcroft-Gault) 126.5 Glucose Level 96 mg/dL (70-99) Calcium Level 8.7 mg/dL (8.5-10.1) Images Images FINDINGS Head CT: No acute intracranial hemorrhage or midline shift or mass-effect or hydrocephalus or extra-axial fluid collection is seen. No focal hypodense area is seen to indicate an acute infarct or edema radiographically. No skull fracture or pneumocephalus is seen. No opacification of the mastoid sinuses or the paranasal sinuses is seen. There is mild mucosal thickening of the posterior wall of the left maxillary sinus. The maxillary sinuses are not completely seen in this study. Cervical spine CT: Significant patient motion artifact is seen. The patient is intubated and is fighting during the scan. This significantly degrades this study. Alignment cannot be evaluated. Fracture cannot be excluded. No definite fracture is seen on this study however. IMPRESSION Head CT: No acute intracranial abnormality is seen. Cervical spine CT: Limited exam due to significant patient motion artifact which significantly degrades this study. If there is still strong clinical concern for a neck fracture, then a repeat study may be needed. Assessment/Plan Assessment/Plan Impression: Alcohol-related seizures, status epilepticus Recommendations: I started levetiracetam Aim for extubation today, I doubt that he will have recurrent seizures. No need to repeat epilepsy workup. Banana bag I discussed my findings with the patient's brother. Thank you for letting me help with the patient's care. LAURA IGLESIAS MD October 19, 2016 10:18
[2016-10-19 11:28] LABS: HCO3 ABG 23 mmol/L (21-28); PCO2 ABG 41 mmHg (35-46); PH ABG 7.37 (7.35-7.45); PO2 ABG 120 mmHg (85-108); SAT O2 ABG 98 % (92-99)
[2016-10-19 11:30] LABS: FIO2 ABG 30
--- NOTE | 2016-10-19 11:31 | PDOC ---
Provider Note Provider Note dictated ALYSSA MARCUM MD October 19, 2016 11:31
[2016-10-19] MEDS: PANTOPRAZOLE IV PUSH 40 MG VIAL. IVP SCH (12:15)
[2016-10-19] MEDS: ENOXAPARIN 40 MG/0.4 ML SYRINGE. SQ SCH (12:16)
--- NOTE | 2016-10-19 12:19 | CONS ---
DATE OF CONSULTATION: ATTENDING PHYSICIAN: Dr. Orozco. REASON FOR CONSULTATION: Respiratory failure. HISTORY OF PRESENT ILLNESS: The patient is a 21-year-old who has a history of alcoholic seizures. He was brought into the hospital after he had witnessed seizure. He had encephalopathy as well. He was intubated by the ER physician for airway protection. Since he has been in the ICU, he has not had any seizure. His chest x-ray did not reveal any acute infiltrates. Endotracheal tube is at satisfactory position. He became very agitated ____ propofol was discontinued. ABGs recent has shown a pH of 7.37, pCO2 of 41, pO2 120 with a bicarb of 23. Neurology has seen the patient. PAST MEDICAL HISTORY: History of alcoholic seizures. PAST SURGICAL HISTORY: No recent surgery. ALLERGIES: None. MEDICATIONS: Reviewed as listed in the MRAD. REVIEW OF SYSTEMS: Unable to obtain as he is on the ventilator. SOCIAL HISTORY: History of alcoholism. PHYSICAL EXAMINATION: VITAL SIGNS: Stable, afebrile, pulse ox ____ on 30% FiO2. HEENT: Sclerae nonicteric. NECK: Supple. LUNGS: Clear. CARDIOVASCULAR: Regular ____. ABDOMEN: Soft. EXTREMITIES: With no pitting edema. LABORATORY DATA: Reviewed. BUN 11, creatinine 1.1. White cell count 3.2, which was ____ earlier. Hemoglobin and hematocrit stable. IMPRESSION: 1. Acute respiratory failure secondary to acute toxic encephalopathy and seizure. 2. Alcoholic seizures/toxic encephalopathy. 3. Alcohol abuse. RECOMMENDATIONS: 1. We will discontinue sedation and proceed with extubation as long as he is following commands. No further seizures reported. 2. Follow Neurology recommendations regarding his seizures. 3. Stress ulcer prophylaxis. 4. SCDs for DVT prophylaxis. 5. We will follow along with you. Discussed with RN and RT. Critical care time 30 minutes. ALYSSA MARCUM MD DR: ASHLEY/shine JOB#: [id number] / [id number] WINNIE
[2016-10-19] MEDS ORDERED: BENZOCAINE/MENTHOL LOZENGE. PO PRN (19:15)
[2016-10-19] MEDS ORDERED: IBUPROFEN 600 MG TABLET. PO PRN (19:15)
[2016-10-19] MEDS ORDERED: chlordiazePOXIDE HCL 25 MG CAPSULE PO PRN (19:15)
[2016-10-19] MEDS ORDERED: HALOPERIDOL LACTATE 5 MG/ML VIAL. IVP PRN (19:15)
[2016-10-19] MEDS ORDERED: cloNIDine HCL 0.1 MG TABLET PO PRN (19:15)
[2016-10-19] MEDS ORDERED: diphenhydrAMINE 50 MG/ML VIAL IVP PRN (19:15)
[2016-10-19] MEDS: IBUPROFEN 600 MG TABLET. PO PRN (19:24)
[2016-10-19] MEDS: chlordiazePOXIDE HCL 25 MG CAPSULE PO PRN (20:15)
[2016-10-20 03:00] VITALS: BP 135/66
[2016-10-20] MEDS: chlordiazePOXIDE HCL 25 MG CAPSULE PO PRN ×4 (04:43→20:26)
[2016-10-20 07:00] VITALS: BP 132/69
[2016-10-20] MEDS ORDERED: MULTIVIT INFUSN,ADULT 4,VIT K 10 ML, THIAMINE 100 MG, FOLIC ACID 1 MG in IV NORMAL SALI... IV SCH (09:00)
[2016-10-20] MEDS: PANTOPRAZOLE IV PUSH 40 MG VIAL. IVP SCH (09:07)
[2016-10-20] MEDS: IBUPROFEN 600 MG TABLET. PO PRN ×2 (09:20→20:26)
[2016-10-20] MEDS ORDERED: ONDANSETRON PF 4 MG/2 ML VIAL. IV PRN (09:45)
[2016-10-20] MEDS: MULTIVIT INFUSN,ADULT 4,VIT K 10 ML, FOLIC ACID 1 MG, THIAMINE 100 MG in IV DEXTROSE 5 ... IV SCH (09:55)
--- NOTE | 2016-10-20 10:17 | PDOC ---
PROGRESS NOTES Assessment Problems Medical Problems: (1) Status epilepticus Status: Acute Alcohol-related seizures Myalgias Dysphagia Plan Continue levetiracetam IV Speech swallow evaluation Check CPK level Rehabilitation modalities Subjective Complains of myalgias and dysphagia Objective Vital Signs Date Time Temp Pulse Resp B/P (MAP) Pulse Ox O2 Delivery O2 Flow Rate FiO2 10/20/16 08:00 Room Air 10/20/16 07:00 98.3 61 16 132/69 (90) 98 98.3 10/19/16 13:07 3.0 Intake and Output 10/20/16 07:00 Intake Total 3557 ml Output Total 547 ml Balance 3010 ml Intake Oral 300 ml IV Total 1655 ml Other 1602 ml Output Urine Total 547 ml # Voids 1 PHYSICAL EXAM Alert. Oriented to time, place and person. PERRL. EOMI. CN: no focal findings. Muscle tone: normal. Muscle strength: 5/5 DTR: 2+ Plantar reflex: flexor Gait: Stands for a few moments, sits back on bed Sensory exam: no abnormal findings. No cerebellar signs elicited. Review of Relevant I have reviewed the following items darrell (where applicable) has been applied. Labs Laboratory Tests Test 10/18/16 19:50 10/18/16 20:30 10/18/16 22:30 10/18/16 23:19 White Blood Count 4.4 x10^3/uL (4.0-11.0) Red Blood Count 5.83 x10^6/uL (4.30-5.70) Hemoglobin 16.8 g/dL (13.0-17.5) Hematocrit 48.6 % (39.0-53.0) Mean Corpuscular Volume 83 fL (79-100) Mean Corpuscular Hemoglobin 29 pg (25-35) Mean Corpuscular Hemoglobin Concent 35 g/dL (31-37) Red Cell Distribution Width 13.7 % (11.5-14.5) Platelet Count 277 x10^3/uL (140-400) Neutrophils (%) (Auto) 45 % (31-73) Lymphocytes (%) (Auto) 41 % (24-48) Monocytes (%) (Auto) 13 % (0-9) Eosinophils (%) (Auto) 1 % (0-3) Basophils (%) (Auto) 1 % (0-3) Neutrophils # (Auto) 2.0 x10^3uL (1.8-7.7) Lymphocytes # (Auto) 1.8 x10^3/uL (1.0-4.8) Monocytes # (Auto) 0.6 x10^3/uL (0.0-1.1) Eosinophils # (Auto) 0.1 x10^3/uL (0.0-0.7) Basophils # (Auto) 0.0 x10^3/uL (0.0-0.2) Sodium Level 139 mmol/L (136-145) Potassium Level 3.8 mmol/L (3.5-5.1) Chloride Level 100 mmol/L (98-107) Carbon Dioxide Level 27 mmol/L (21-32) Anion Gap 12 (6-14) Blood Urea Nitrogen 11 mg/dL (8-26) Creatinine 1.1 mg/dL (0.7-1.3) Estimated GFR (Cockcroft-Gault) 83.0 BUN/Creatinine Ratio 10 (6-20) Glucose Level 85 mg/dL (70-99) Lactic Acid Level 4.0 mmol/L (0.4-2.0) Calcium Level 9.2 mg/dL (8.5-10.1) Total Bilirubin 0.4 mg/dL (0.2-1.0) Aspartate Amino Transf (AST/SGOT) 54 U/L (15-37) Alanine Aminotransferase (ALT/SGPT) 115 U/L (16-63) Alkaline Phosphatase 71 U/L (46-116) Troponin I Quantitative < 0.017 ng/mL (0.000-0.055) Total Protein 9.2 g/dL (6.4-8.2) Albumin 4.1 g/dL (3.4-5.0) Albumin/Globulin Ratio 0.8 (1.0-1.7) Salicylates Level < 2.8 mg/dL (2.8-20.0) Salicylate Last Dose Date Unk Salicylate Last Dose Time Unk Acetaminophen Level < 2 mcg/ml (10-30) Acetaminophen Last Dose Date Unk Acetaminophen Last Dose Time Unk Ethyl Alcohol Level 340 mg/dL (0-10) Urine Opiates Screen Neg (NEG) Urine Methadone Screen Neg (NEG) Urine Barbiturates Neg (NEG) Urine Phencyclidine Screen Neg (NEG) Urine Amphetamine/Methamphetamine Neg (NEG) Urine Benzodiazepines Screen Pos (NEG) Urine Cocaine Screen Neg (NEG) Urine Cannabinoids Screen Neg (NEG) Urine Ethyl Alcohol Pos (NEG) Nasal Screen MRSA (PCR) Negative (Negative) O2 Saturation 99 % (92-99) Arterial Blood pH 7.42 (7.35-7.45) Arterial Blood pCO2 at Patient Temp 40 mmHg (35-46) Arterial Blood pO2 at Patient Temp 228 mmHg (85-108) Arterial Blood HCO3 25 mmol/L (21-28) Arterial Blood Base Excess 1 mmol/L (-3-3) FiO2 40 Test 10/18/16 23:40 10/19/16 02:45 10/19/16 11:20 10/20/16 09:15 Lactic Acid Level 2.0 mmol/L (0.4-2.0) White Blood Count 3.2 x10^3/uL (4.0-11.0) Red Blood Count 5.49 x10^6/uL (4.30-5.70) Hemoglobin 15.8 g/dL (13.0-17.5) Hematocrit 45.9 % (39.0-53.0) Mean Corpuscular Volume 84 fL (79-100) Mean Corpuscular Hemoglobin 29 pg (25-35) Mean Corpuscular Hemoglobin Concent 34 g/dL (31-37) Red Cell Distribution Width 13.7 % (11.5-14.5) Platelet Count 238 x10^3/uL (140-400) Neutrophils (%) (Auto) 34 % (31-73) Lymphocytes (%) (Auto) 49 % (24-48) Monocytes (%) (Auto) 15 % (0-9) Eosinophils (%) (Auto) 2 % (0-3) Basophils (%) (Auto) 0 % (0-3) Neutrophils # (Auto) 1.1 x10^3uL (1.8-7.7) Lymphocytes # (Auto) 1.6 x10^3/uL (1.0-4.8) Monocytes # (Auto) 0.5 x10^3/uL (0.0-1.1) Eosinophils # (Auto) 0.1 x10^3/uL (0.0-0.7) Basophils # (Auto) 0.0 x10^3/uL (0.0-0.2) Sodium Level 140 mmol/L (136-145) Potassium Level 4.0 mmol/L (3.5-5.1) Chloride Level 103 mmol/L (98-107) Carbon Dioxide Level 26 mmol/L (21-32) Anion Gap 11 (6-14) Blood Urea Nitrogen 12 mg/dL (8-26) Creatinine 0.9 mg/dL (0.7-1.3) Estimated GFR (Cockcroft-Gault) 126.5 Glucose Level 96 mg/dL (70-99) Calcium Level 8.7 mg/dL (8.5-10.1) O2 Saturation 98 % (92-99) Arterial Blood pH 7.37 (7.35-7.45) Arterial Blood pCO2 at Patient Temp 41 mmHg (35-46) Arterial Blood pO2 at Patient Temp 120 mmHg (85-108) Arterial Blood HCO3 23 mmol/L (21-28) Arterial Blood Base Excess -2 mmol/L (-3-3) FiO2 30 Creatine Kinase 815 U/L (39-308) Laboratory Tests Test 10/19/16 11:20 10/20/16 09:15 O2 Saturation 98 % (92-99) Arterial Blood pH 7.37 (7.35-7.45) Arterial Blood pCO2 at Patient Temp 41 mmHg (35-46) Arterial Blood pO2 at Patient Temp 120 mmHg (85-108) Arterial Blood HCO3 23 mmol/L (21-28) Arterial Blood Base Excess -2 mmol/L (-3-3) FiO2 30 Creatine Kinase 815 U/L (39-308) Medications Current Medications Propofol 50 ml @ As Directed STK-MED ONCE IV ; Start 10/18/16 at 20:02; Stop at 20:03; Status DC Sodium Chloride 1,000 ml @ 1,000 mls/hr 1X ONCE IV Last administered on 20:20; Start 10/18/16 at 20:15; Stop 10/18/16 at 21:14; Status DC Propofol 20 ml @ 0 mls/hr 1X ONCE IV Last administered on 10/18/16 20:47; Start 10/18/16 at 20:15; Stop 10/18/16 at 20:16; Status DC Ondansetron HCl (Zofran) 4 mg 1X ONCE IV Last administered on 10/18/16 19:53 ; Start 10/18/16 at 20:15; Stop 10/18/16 at 20:16; Status DC Lorazepam (Ativan) 2 mg 1X ONCE IV Last administered on 10/18/16 19:45; Start 10/18/16 at 20:15; Stop 10/18/16 at 20:16; Status DC Etomidate (Amidate) 20 mg 1X ONCE IV Last administered on 10/18/16 19:55; Start 10/18/16 at 20:15; Stop 10/18/16 at 20:16; Status DC Succinylcholine Chloride (Anectine) 100 mg 1X ONCE IV Last administered on 19:55; Start 10/18/16 at 20:15; Stop 10/18/16 at 20:16; Status DC Ondansetron HCl (Zofran) 4 mg PRN Q8HRS PRN IV NAUSEA/VOMITING; Start 10/18/16 at 20:45; Stop 10/19/16 at 20:44; Status DC Sodium Chloride 1,000 ml @ 125 mls/hr Q8H IV Last administered on 10/19/16 02 :26; Start 10/18/16 at 20:42; Stop 10/19/16 at 09:09; Status DC Propofol 100 ml @ 0 mls/hr CONT PRN IV SEE I/O RECORD Last administered on 10/19 10:04; Start 10/18/16 at 21:15; Stop 10/19/16 at 19:08; Status DC Multivitamins 10 ml/Thiamine HCl 100 mg/Folic Acid 1 mg/Sodium Chloride 1,011.2 ml @ 100 mls/ hr DAILY IV Last administered on 10/19/16 09:26; Start at 09:00; Stop 10/20/16 at 08:59; Status DC Etomidate (Amidate) 20 mg STK-MED ONCE IV ; Start 10/19/16 at 01:55; Stop at 01:56; Status DC Succinylcholine Chloride (Anectine) 200 mg STK-MED ONCE .ROUTE ; Start 10/19/16 at 01:56; Stop 10/19/16 at 01:57; Status DC Levetiracetam 500 mg/Sodium Chloride 100 ml @ 400 mls/hr Q12HR IV Last administered on 10/20/16 09:06; Start 10/19/16 at 09:00 Multivitamins 10 ml/Folic Acid 1 mg/Thiamine HCl 100 mg/Dextrose/ Sodium Chloride 1,011.2 ml @ 125 mls/ hr DAILY IV Last administered on 10/20/16 09: 55; Start 10/20/16 at 09:00 Multivitamins 10 ml/Thiamine HCl 100 mg/Folic Acid 1 mg/Sodium Chloride 1,011.2 ml @ 100 mls/ hr DAILY IV ; Start 10/20/16 at 09:00; Stop 10/25/16 at 08:59; Status UNV Lorazepam (Ativan) 2 mg Q6H PO Last administered on 10/19/16 17:02; Start at 10:15; Stop 10/19/16 at 19:18; Status DC Pantoprazole Sodium (Protonix Vial) 40 mg DAILY IVP Last administered on 09:07; Start 10/19/16 at 11:00 Enoxaparin Sodium (Lovenox 40mg Syringe) 40 mg Q24H SQ Last administered on 12:16; Start 10/19/16 at 11:00 Throat Lozenges (Cepacol Sore Throat Lozenge) 1 byron PRN Q12HR PRN PO SORE THROAT Last administered on 10/19/16 19:23; Start 10/19/16 at 19:15 Ibuprofen (Motrin) 600 mg PRN Q8HRS PRN PO INFLAMMATION Last administered on 09:20; Start 10/19/16 at 19:15 Chlordiazepoxide (Librium) 50 mg PRN Q1HR PRN PO For CIWA 8-14 Last administered on 10/20/16 09:19; Start 10/19/16 at 19:15 Chlordiazepoxide (Librium) 100 mg PRN Q1HR PRN PO For CIWA 15 or greater; Start 10/19/16 at 19:15 Haloperidol Lactate (Haldol) 5 mg PRN Q4HRS PRN IVP Hallucinatns,Confusn, Delirium; Start 10/19/16 at 19:15 Diphenhydramine HCl (Benadryl) 25 mg PRN Q15MIN PRN IVP EPS symptoms 2'Haldol admin; Start 10/19/16 at 19:15 Clonidine HCl (Catapres) 0.1 mg PRN Q1HR PRN PO SBP > 180 or DBP > 100, MRX3; Start 10/19/16 at 19:15 Ibuprofen (Motrin) 600 mg PRN Q8HRS PRN PO pain; Start 10/19/16 at 19:15 Ondansetron HCl (Zofran) 4 mg PRN Q6HRS PRN IV NAUSEA/VOMITING; Start 10/20/16 at 09:45 Vitals/I & O Vital Sign - Last 24 Hours 10/19/16 10/19/16 10/19/16 10/19/16 11:00 11:20 11:55 12:10 Pulse 94 Resp 16 B/P (MAP) 150/87 (108) Pulse Ox 99 99 O2 Delivery Ventilator Ventilator Nasal Cannula Nasal Cannula O2 Flow Rate 3.0 3.0 10/19/16 10/19/16 10/19/16 10/19/16 12:12 13:07 13:54 15:11 Pulse 90 88 78 83 Resp 20 18 18 20 B/P (MAP) 135/86 (102) 136/79 (98) 139/80 (99) 141/70 (93) Pulse Ox 99 99 98 98 O2 Delivery Nasal Cannula Nasal Cannula Room Air Room Air O2 Flow Rate 3.0 3.0 10/19/16 10/19/16 10/19/16 10/19/16 16:00 17:08 17:50 19:29 Temp 99.8 99.1 98.6 99.8 99.1 98.6 Pulse 79 71 88 90 Resp 20 18 16 18 B/P (MAP) 131/68 (89) 140/66 (90) 139/85 (103) 138/87 (104) Pulse Ox 99 98 97 95 O2 Delivery Room Air Room Air Room Air Room Air 10/19/16 10/19/16 10/20/16 10/20/16 20:00 23:46 03:00 07:00 Temp 98.8 98.7 98.3 98.8 98.7 98.3 Pulse 80 77 61 Resp 20 18 16 B/P (MAP) 125/82 (96) 135/66 (89) 132/69 (90) Pulse Ox 99 98 98 O2 Delivery Room Air Room Air Room Air Room Air 10/20/16 08:00 O2 Delivery Room Air Intake and Output 10/19/16 10/19/16 10/20/16 15:00 23:00 07:00 Intake Total 199 ml 3058 ml 300 ml Output Total 272 ml 175 ml 100 ml Balance -73 ml 2883 ml 200 ml LAURA IGLESIAS MD October 20, 2016 10:17
[2016-10-20 11:00] VITALS: BP 127/70
--- NOTE | 2016-10-20 11:50 | PDOC ---
PROGRESS NOTES Chief Complaint Chief Complaint Seizure ASSESSMENT AND PLAN: 1. Etoh related Seizure: 2. Bipolar d/o - recently dcd from [place] 2. HOmelessness 3. Respir failure: sec to #1, intubated x 1 day (extubated 10/19) 4. Severe depression/grievance from recent family loss History of Present Illness History of Present Illness Sore body SOre throat Good voice Slightly drowsy BAnana bag running Nail Professional at bedside PAssed swallow per RN PLAn: Reg diet Cepastat NOAH - [place] consult - dw him, OP GIving references for homelessness Add PT/OT Dc ativan scheduled Hopefully able to dc dewey once more ambulatory less weak Vitals Vitals Vital Signs Date Time Temp Pulse Resp B/P (MAP) Pulse Ox O2 Delivery O2 Flow Rate FiO2 10/20/16 11:00 97.9 62 16 127/70 (89) 97 Room Air 97.9 10/19/16 13:07 3.0 Physical Exam General: Other (intubated sedated) Heart: Regular rate Lungs: Clear Abdomen: Normal bowel sounds, No tenderness Extremities: No edema Skin: No rashes Labs LABS Laboratory Tests Test 10/20/16 09:15 Creatine Kinase 815 U/L (39-308) Review of Systems Review of Systems sore body, throat, weak Assessment and Plan Assessmemt and Plan Problems Medical Problems: (1) Status epilepticus Status: Acute Problems: Comment Review of Relevant I have reviewed the following items darrell (where applicable) has been applied. Labs Laboratory Tests Test 10/18/16 19:50 10/18/16 20:30 10/18/16 22:30 10/18/16 23:19 White Blood Count 4.4 x10^3/uL (4.0-11.0) Red Blood Count 5.83 x10^6/uL (4.30-5.70) Hemoglobin 16.8 g/dL (13.0-17.5) Hematocrit 48.6 % (39.0-53.0) Mean Corpuscular Volume 83 fL (79-100) Mean Corpuscular Hemoglobin 29 pg (25-35) Mean Corpuscular Hemoglobin Concent 35 g/dL (31-37) Red Cell Distribution Width 13.7 % (11.5-14.5) Platelet Count 277 x10^3/uL (140-400) Neutrophils (%) (Auto) 45 % (31-73) Lymphocytes (%) (Auto) 41 % (24-48) Monocytes (%) (Auto) 13 % (0-9) Eosinophils (%) (Auto) 1 % (0-3) Basophils (%) (Auto) 1 % (0-3) Neutrophils # (Auto) 2.0 x10^3uL (1.8-7.7) Lymphocytes # (Auto) 1.8 x10^3/uL (1.0-4.8) Monocytes # (Auto) 0.6 x10^3/uL (0.0-1.1) Eosinophils # (Auto) 0.1 x10^3/uL (0.0-0.7) Basophils # (Auto) 0.0 x10^3/uL (0.0-0.2) Sodium Level 139 mmol/L (136-145) Potassium Level 3.8 mmol/L (3.5-5.1) Chloride Level 100 mmol/L (98-107) Carbon Dioxide Level 27 mmol/L (21-32) Anion Gap 12 (6-14) Blood Urea Nitrogen 11 mg/dL (8-26) Creatinine 1.1 mg/dL (0.7-1.3) Estimated GFR (Cockcroft-Gault) 83.0 BUN/Creatinine Ratio 10 (6-20) Glucose Level 85 mg/dL (70-99) Lactic Acid Level 4.0 mmol/L (0.4-2.0) Calcium Level 9.2 mg/dL (8.5-10.1) Total Bilirubin 0.4 mg/dL (0.2-1.0) Aspartate Amino Transf (AST/SGOT) 54 U/L (15-37) Alanine Aminotransferase (ALT/SGPT) 115 U/L (16-63) Alkaline Phosphatase 71 U/L (46-116) Troponin I Quantitative < 0.017 ng/mL (0.000-0.055) Total Protein 9.2 g/dL (6.4-8.2) Albumin 4.1 g/dL (3.4-5.0) Albumin/Globulin Ratio 0.8 (1.0-1.7) Salicylates Level < 2.8 mg/dL (2.8-20.0) Salicylate Last Dose Date Unk Salicylate Last Dose Time Unk Acetaminophen Level < 2 mcg/ml (10-30) Acetaminophen Last Dose Date Unk Acetaminophen Last Dose Time Unk Ethyl Alcohol Level 340 mg/dL (0-10) Urine Opiates Screen Neg (NEG) Urine Methadone Screen Neg (NEG) Urine Barbiturates Neg (NEG) Urine Phencyclidine Screen Neg (NEG) Urine Amphetamine/Methamphetamine Neg (NEG) Urine Benzodiazepines Screen Pos (NEG) Urine Cocaine Screen Neg (NEG) Urine Cannabinoids Screen Neg (NEG) Urine Ethyl Alcohol Pos (NEG) Nasal Screen MRSA (PCR) Negative (Negative) O2 Saturation 99 % (92-99) Arterial Blood pH 7.42 (7.35-7.45) Arterial Blood pCO2 at Patient Temp 40 mmHg (35-46) Arterial Blood pO2 at Patient Temp 228 mmHg (85-108) Arterial Blood HCO3 25 mmol/L (21-28) Arterial Blood Base Excess 1 mmol/L (-3-3) FiO2 40 Test 10/18/16 23:40 10/19/16 02:45 10/19/16 11:20 10/20/16 09:15 Lactic Acid Level 2.0 mmol/L (0.4-2.0) White Blood Count 3.2 x10^3/uL (4.0-11.0) Red Blood Count 5.49 x10^6/uL (4.30-5.70) Hemoglobin 15.8 g/dL (13.0-17.5) Hematocrit 45.9 % (39.0-53.0) Mean Corpuscular Volume 84 fL (79-100) Mean Corpuscular Hemoglobin 29 pg (25-35) Mean Corpuscular Hemoglobin Concent 34 g/dL (31-37) Red Cell Distribution Width 13.7 % (11.5-14.5) Platelet Count 238 x10^3/uL (140-400) Neutrophils (%) (Auto) 34 % (31-73) Lymphocytes (%) (Auto) 49 % (24-48) Monocytes (%) (Auto) 15 % (0-9) Eosinophils (%) (Auto) 2 % (0-3) Basophils (%) (Auto) 0 % (0-3) Neutrophils # (Auto) 1.1 x10^3uL (1.8-7.7) Lymphocytes # (Auto) 1.6 x10^3/uL (1.0-4.8) Monocytes # (Auto) 0.5 x10^3/uL (0.0-1.1) Eosinophils # (Auto) 0.1 x10^3/uL (0.0-0.7) Basophils # (Auto) 0.0 x10^3/uL (0.0-0.2) Sodium Level 140 mmol/L (136-145) Potassium Level 4.0 mmol/L (3.5-5.1) Chloride Level 103 mmol/L (98-107) Carbon Dioxide Level 26 mmol/L (21-32) Anion Gap 11 (6-14) Blood Urea Nitrogen 12 mg/dL (8-26) Creatinine 0.9 mg/dL (0.7-1.3) Estimated GFR (Cockcroft-Gault) 126.5 Glucose Level 96 mg/dL (70-99) Calcium Level 8.7 mg/dL (8.5-10.1) O2 Saturation 98 % (92-99) Arterial Blood pH 7.37 (7.35-7.45) Arterial Blood pCO2 at Patient Temp 41 mmHg (35-46) Arterial Blood pO2 at Patient Temp 120 mmHg (85-108) Arterial Blood HCO3 23 mmol/L (21-28) Arterial Blood Base Excess -2 mmol/L (-3-3) FiO2 30 Creatine Kinase 815 U/L (39-308) Laboratory Tests Test 10/20/16 09:15 Creatine Kinase 815 U/L (39-308) Medications Current Medications Propofol 50 ml @ As Directed STK-MED ONCE IV ; Start 10/18/16 at 20:02; Stop at 20:03; Status DC Sodium Chloride 1,000 ml @ 1,000 mls/hr 1X ONCE IV Last administered on 20:20; Start 10/18/16 at 20:15; Stop 10/18/16 at 21:14; Status DC Propofol 20 ml @ 0 mls/hr 1X ONCE IV Last administered on 10/18/16 20:47; Start 10/18/16 at 20:15; Stop 10/18/16 at 20:16; Status DC Ondansetron HCl (Zofran) 4 mg 1X ONCE IV Last administered on 10/18/16 19:53 ; Start 10/18/16 at 20:15; Stop 10/18/16 at 20:16; Status DC Lorazepam (Ativan) 2 mg 1X ONCE IV Last administered on 10/18/16 19:45; Start 10/18/16 at 20:15; Stop 10/18/16 at 20:16; Status DC Etomidate (Amidate) 20 mg 1X ONCE IV Last administered on 10/18/16 19:55; Start 10/18/16 at 20:15; Stop 10/18/16 at 20:16; Status DC Succinylcholine Chloride (Anectine) 100 mg 1X ONCE IV Last administered on 19:55; Start 10/18/16 at 20:15; Stop 10/18/16 at 20:16; Status DC Ondansetron HCl (Zofran) 4 mg PRN Q8HRS PRN IV NAUSEA/VOMITING; Start 10/18/16 at 20:45; Stop 10/19/16 at 20:44; Status DC Sodium Chloride 1,000 ml @ 125 mls/hr Q8H IV Last administered on 10/19/16 02 :26; Start 10/18/16 at 20:42; Stop 10/19/16 at 09:09; Status DC Propofol 100 ml @ 0 mls/hr CONT PRN IV SEE I/O RECORD Last administered on 10/19 10:04; Start 10/18/16 at 21:15; Stop 10/19/16 at 19:08; Status DC Multivitamins 10 ml/Thiamine HCl 100 mg/Folic Acid 1 mg/Sodium Chloride 1,011.2 ml @ 100 mls/ hr DAILY IV Last administered on 10/19/16 09:26; Start at 09:00; Stop 10/20/16 at 08:59; Status DC Etomidate (Amidate) 20 mg STK-MED ONCE IV ; Start 10/19/16 at 01:55; Stop at 01:56; Status DC Succinylcholine Chloride (Anectine) 200 mg STK-MED ONCE .ROUTE ; Start 10/19/16 at 01:56; Stop 10/19/16 at 01:57; Status DC Levetiracetam 500 mg/Sodium Chloride 100 ml @ 400 mls/hr Q12HR IV Last administered on 10/20/16 09:06; Start 10/19/16 at 09:00 Multivitamins 10 ml/Folic Acid 1 mg/Thiamine HCl 100 mg/Dextrose/ Sodium Chloride 1,011.2 ml @ 125 mls/ hr DAILY IV Last administered on 10/20/16 09: 55; Start 10/20/16 at 09:00 Multivitamins 10 ml/Thiamine HCl 100 mg/Folic Acid 1 mg/Sodium Chloride 1,011.2 ml @ 100 mls/ hr DAILY IV ; Start 10/20/16 at 09:00; Stop 10/25/16 at 08:59; Status UNV Lorazepam (Ativan) 2 mg Q6H PO Last administered on 10/19/16 17:02; Start at 10:15; Stop 10/19/16 at 19:18; Status DC Pantoprazole Sodium (Protonix Vial) 40 mg DAILY IVP Last administered on 09:07; Start 10/19/16 at 11:00 Enoxaparin Sodium (Lovenox 40mg Syringe) 40 mg Q24H SQ Last administered on 12:16; Start 10/19/16 at 11:00 Throat Lozenges (Cepacol Sore Throat Lozenge) 1 byron PRN Q12HR PRN PO SORE THROAT Last administered on 10/19/16 19:23; Start 10/19/16 at 19:15 Ibuprofen (Motrin) 600 mg PRN Q8HRS PRN PO INFLAMMATION Last administered on 09:20; Start 10/19/16 at 19:15 Chlordiazepoxide (Librium) 50 mg PRN Q1HR PRN PO For CIWA 8-14 Last administered on 10/20/16 09:19; Start 10/19/16 at 19:15 Chlordiazepoxide (Librium) 100 mg PRN Q1HR PRN PO For CIWA 15 or greater; Start 10/19/16 at 19:15 Haloperidol Lactate (Haldol) 5 mg PRN Q4HRS PRN IVP Hallucinatns,Confusn, Delirium; Start 10/19/16 at 19:15 Diphenhydramine HCl (Benadryl) 25 mg PRN Q15MIN PRN IVP EPS symptoms 2'Haldol admin; Start 10/19/16 at 19:15 Clonidine HCl (Catapres) 0.1 mg PRN Q1HR PRN PO SBP > 180 or DBP > 100, MRX3; Start 10/19/16 at 19:15 Ibuprofen (Motrin) 600 mg PRN Q8HRS PRN PO pain; Start 10/19/16 at 19:15 Ondansetron HCl (Zofran) 4 mg PRN Q6HRS PRN IV NAUSEA/VOMITING; Start 10/20/16 at 09:45 Vitals/I & O Vital Sign - Last 24 Hours 10/19/16 10/19/16 10/19/16 10/19/16 11:55 12:10 12:12 13:07 Pulse 90 88 Resp 20 18 B/P (MAP) 135/86 (102) 136/79 (98) Pulse Ox 99 99 O2 Delivery Nasal Cannula Nasal Cannula Nasal Cannula Nasal Cannula O2 Flow Rate 3.0 3.0 3.0 3.0 10/19/16 10/19/16 10/19/16 10/19/16 13:54 15:11 16:00 17:08 Temp 99.8 99.8 Pulse 78 83 79 71 Resp 18 20 20 18 B/P (MAP) 139/80 (99) 141/70 (93) 131/68 (89) 140/66 (90) Pulse Ox 98 98 99 98 O2 Delivery Room Air Room Air Room Air Room Air 10/19/16 10/19/16 10/19/16 10/19/16 17:50 19:29 20:00 23:46 Temp 99.1 98.6 98.8 99.1 98.6 98.8 Pulse 88 90 80 Resp 16 18 20 B/P (MAP) 139/85 (103) 138/87 (104) 125/82 (96) Pulse Ox 97 95 99 O2 Delivery Room Air Room Air Room Air Room Air 10/20/16 10/20/16 10/20/16 10/20/16 03:00 07:00 08:00 11:00 Temp 98.7 98.3 97.9 98.7 98.3 97.9 Pulse 77 61 62 Resp 18 16 16 B/P (MAP) 135/66 (89) 132/69 (90) 127/70 (89) Pulse Ox 98 98 97 O2 Delivery Room Air Room Air Room Air Room Air Intake and Output 10/19/16 10/19/16 10/20/16 15:00 23:00 07:00 Intake Total 199 ml 3058 ml 300 ml Output Total 272 ml 175 ml 100 ml Balance -73 ml 2883 ml 200 ml MOISE DEMPSEY MD October 20, 2016 11:50
[2016-10-20] MEDS ORDERED: BENZOCAINE/MENTHOL LOZENGE. PO PRN (12:00)
[2016-10-20] MEDS: ENOXAPARIN 40 MG/0.4 ML SYRINGE. SQ SCH (12:58)
[2016-10-20 15:00] VITALS: BP 144/83
[2016-10-20 19:00] VITALS: BP 127/62
[2016-10-20 23:00] VITALS: BP 142/81
[2016-10-21 03:00] VITALS: BP 128/60
[2016-10-21] MEDS: IBUPROFEN 600 MG TABLET. PO PRN (05:31)
[2016-10-21 06:06] LABS: ALBUMIN/GLOBULIN RATIO 0.9 (1.0-1.7); CALCIUM 8.8 mg/dL (8.5-10.1); POTASSIUM 4.1 mmol/L (3.5-5.1); TOTAL BILIRUBIN 0.6 mg/dL (0.2-1.0); TOTAL PROTEIN 6.5 g/dL (6.4-8.2)
[2016-10-21 07:00] VITALS: BP 134/79
[2016-10-21] MEDS: PANTOPRAZOLE IV PUSH 40 MG VIAL. IVP SCH (09:13)
[2016-10-21] MEDS: MULTIVIT INFUSN,ADULT 4,VIT K 10 ML, FOLIC ACID 1 MG, THIAMINE 100 MG in IV DEXTROSE 5 ... IV SCH (09:38)
[2016-10-21] MEDS ORDERED: LEVE500T56 PO (09:53)
[2016-10-21] MEDS: chlordiazePOXIDE HCL 25 MG CAPSULE PO PRN (09:53)
--- NOTE | 2016-10-21 09:56 | PDOC3 ---
Discharge Summary Visit Information Date of Admission: October 18, 2016 Date of Discharge: October 21, 2016 Admitting Diagnosis Comment: 1. Etoh related Seizure: 2. Bipolar d/o - recently dcd from [place] 2. HOmelessness 3. Respir failure: sec to #1, intubated x 1 day (extubated 10/19) 4. Severe depression/grievance from recent family loss Final Diagnosis Problems Medical Problems: (1) Status epilepticus Status: Acute Brief Hospital Course Allergies Allergies Coded Allergies Type Severity Reaction Last Updated Verified No Known Drug Allergies 10/19/16 No Vital Signs Vital Signs Date Time Temp Pulse Resp B/P (MAP) Pulse Ox O2 Delivery O2 Flow Rate FiO2 10/21/16 08:00 Room Air 10/21/16 07:00 97.7 53 16 134/79 (97) 97 97.7 Lab Results Laboratory Tests Test 10/19/16 11:20 10/20/16 09:15 10/21/16 05:20 O2 Saturation 98 % (92-99) Arterial Blood pH 7.37 (7.35-7.45) Arterial Blood pCO2 at Patient Temp 41 mmHg (35-46) Arterial Blood pO2 at Patient Temp 120 mmHg (85-108) Arterial Blood HCO3 23 mmol/L (21-28) Arterial Blood Base Excess -2 mmol/L (-3-3) FiO2 30 Creatine Kinase 815 U/L (39-308) 510 U/L (39-308) Sodium Level 138 mmol/L (136-145) Potassium Level 4.1 mmol/L (3.5-5.1) Chloride Level 104 mmol/L (98-107) Carbon Dioxide Level 27 mmol/L (21-32) Anion Gap 7 (6-14) Blood Urea Nitrogen 17 mg/dL (8-26) Creatinine 1.0 mg/dL (0.7-1.3) Estimated GFR (Cockcroft-Gault) 112.0 BUN/Creatinine Ratio 17 (6-20) Glucose Level 102 mg/dL (70-99) Calcium Level 8.8 mg/dL (8.5-10.1) Total Bilirubin 0.6 mg/dL (0.2-1.0) Aspartate Amino Transf (AST/SGOT) 41 U/L (15-37) Alanine Aminotransferase (ALT/SGPT) 56 U/L (16-63) Alkaline Phosphatase 61 U/L (46-116) Total Protein 6.5 g/dL (6.4-8.2) Albumin 3.0 g/dL (3.4-5.0) Albumin/Globulin Ratio 0.9 (1.0-1.7) Laboratory Tests Test 10/21/16 05:20 Sodium Level 138 mmol/L (136-145) Potassium Level 4.1 mmol/L (3.5-5.1) Chloride Level 104 mmol/L (98-107) Carbon Dioxide Level 27 mmol/L (21-32) Anion Gap 7 (6-14) Blood Urea Nitrogen 17 mg/dL (8-26) Creatinine 1.0 mg/dL (0.7-1.3) Estimated GFR (Cockcroft-Gault) 112.0 BUN/Creatinine Ratio 17 (6-20) Glucose Level 102 mg/dL (70-99) Calcium Level 8.8 mg/dL (8.5-10.1) Total Bilirubin 0.6 mg/dL (0.2-1.0) Aspartate Amino Transf (AST/SGOT) 41 U/L (15-37) Alanine Aminotransferase (ALT/SGPT) 56 U/L (16-63) Alkaline Phosphatase 61 U/L (46-116) Creatine Kinase 510 U/L (39-308) Total Protein 6.5 g/dL (6.4-8.2) Albumin 3.0 g/dL (3.4-5.0) Albumin/Globulin Ratio 0.9 (1.0-1.7) Brief Hospital Course Mr. Person is a 21 old AA male from [facility] had SZ, needed to be intubated just for 1 day, CPK high from SZ, better numbers on dc, Wanted to extend stay but no med reason to stay, PAssed PEDI[employer]OR[employer] MEDIC[employer] SPECIALIST, reg diet, Started on PO keppra 500 BID by neuro, Rx given, Requests pain med RX, gave a few. COnsulTs; pulmo, neuro Proc: intubation PT seen and examined Dipso: [facility] Dw RN, SW at bedside time 32 mins Discharge Information Condition at Discharge: Improved, Stable Disposition/Orders: D/C to Home MOISE DEMPSEY MD October 21, 2016 09:56
[2016-10-21] MEDS ORDERED: levETIRAcetam 500 MG TABLET PO SCH (10:00)
[2016-10-21 11:00] VITALS: BP 137/65
[2016-10-21] MEDS: ENOXAPARIN 40 MG/0.4 ML SYRINGE. SQ SCH (11:00)
--- NOTE | 2016-10-21 12:18 | PDOC ---
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 Objective Vital Signs Date Time Temp Pulse Resp B/P (MAP) Pulse Ox O2 Delivery O2 Flow Rate FiO2 10/21/16 11:00 97.8 69 16 137/65 (89) 98 Room Air 97.8 Intake and Output 10/21/16 07:00 Intake Total 700 ml Output Total 1950 ml Balance -1250 ml Intake Oral 700 ml Output Urine Total 1950 ml PHYSICAL EXAM Alert. Oriented to time, place and person. PERRL. EOMI. CN: no focal findings. Muscle tone: normal. Muscle strength: 5/5 DTR: 2+ Plantar reflex: flexor Gait: Able to take a few steps Sensory exam: no abnormal findings. No cerebellar signs elicited. He is a little tremulous Review of Relevant I have reviewed the following items darrell (where applicable) has been applied. Labs Laboratory Tests Test 10/20/16 09:15 10/21/16 05:20 Creatine Kinase 815 U/L (39-308) 510 U/L (39-308) Sodium Level 138 mmol/L (136-145) Potassium Level 4.1 mmol/L (3.5-5.1) Chloride Level 104 mmol/L (98-107) Carbon Dioxide Level 27 mmol/L (21-32) Anion Gap 7 (6-14) Blood Urea Nitrogen 17 mg/dL (8-26) Creatinine 1.0 mg/dL (0.7-1.3) Estimated GFR (Cockcroft-Gault) 112.0 BUN/Creatinine Ratio 17 (6-20) Glucose Level 102 mg/dL (70-99) Calcium Level 8.8 mg/dL (8.5-10.1) Total Bilirubin 0.6 mg/dL (0.2-1.0) Aspartate Amino Transf (AST/SGOT) 41 U/L (15-37) Alanine Aminotransferase (ALT/SGPT) 56 U/L (16-63) Alkaline Phosphatase 61 U/L (46-116) Total Protein 6.5 g/dL (6.4-8.2) Albumin 3.0 g/dL (3.4-5.0) Albumin/Globulin Ratio 0.9 (1.0-1.7) Laboratory Tests Test 10/21/16 05:20 Sodium Level 138 mmol/L (136-145) Potassium Level 4.1 mmol/L (3.5-5.1) Chloride Level 104 mmol/L (98-107) Carbon Dioxide Level 27 mmol/L (21-32) Anion Gap 7 (6-14) Blood Urea Nitrogen 17 mg/dL (8-26) Creatinine 1.0 mg/dL (0.7-1.3) Estimated GFR (Cockcroft-Gault) 112.0 BUN/Creatinine Ratio 17 (6-20) Glucose Level 102 mg/dL (70-99) Calcium Level 8.8 mg/dL (8.5-10.1) Total Bilirubin 0.6 mg/dL (0.2-1.0) Aspartate Amino Transf (AST/SGOT) 41 U/L (15-37) Alanine Aminotransferase (ALT/SGPT) 56 U/L (16-63) Alkaline Phosphatase 61 U/L (46-116) Creatine Kinase 510 U/L (39-308) Total Protein 6.5 g/dL (6.4-8.2) Albumin 3.0 g/dL (3.4-5.0) Albumin/Globulin Ratio 0.9 (1.0-1.7) Medications Current Medications Propofol 50 ml @ As Directed STK-MED ONCE IV ; Start 10/18/16 at 20:02; Stop at 20:03; Status DC Sodium Chloride 1,000 ml @ 1,000 mls/hr 1X ONCE IV Last administered on 20:20; Start 10/18/16 at 20:15; Stop 10/18/16 at 21:14; Status DC Propofol 20 ml @ 0 mls/hr 1X ONCE IV Last administered on 10/18/16 20:47; Start 10/18/16 at 20:15; Stop 10/18/16 at 20:16; Status DC Ondansetron HCl (Zofran) 4 mg 1X ONCE IV Last administered on 10/18/16 19:53 ; Start 10/18/16 at 20:15; Stop 10/18/16 at 20:16; Status DC Lorazepam (Ativan) 2 mg 1X ONCE IV Last administered on 10/18/16 19:45; Start 10/18/16 at 20:15; Stop 10/18/16 at 20:16; Status DC Etomidate (Amidate) 20 mg 1X ONCE IV Last administered on 10/18/16 19:55; Start 10/18/16 at 20:15; Stop 10/18/16 at 20:16; Status DC Succinylcholine Chloride (Anectine) 100 mg 1X ONCE IV Last administered on 19:55; Start 10/18/16 at 20:15; Stop 10/18/16 at 20:16; Status DC Ondansetron HCl (Zofran) 4 mg PRN Q8HRS PRN IV NAUSEA/VOMITING; Start 10/18/16 at 20:45; Stop 10/19/16 at 20:44; Status DC Sodium Chloride 1,000 ml @ 125 mls/hr Q8H IV Last administered on 10/19/16 02 :26; Start 10/18/16 at 20:42; Stop 10/19/16 at 09:09; Status DC Propofol 100 ml @ 0 mls/hr CONT PRN IV SEE I/O RECORD Last administered on 10/19 10:04; Start 10/18/16 at 21:15; Stop 10/19/16 at 19:08; Status DC Multivitamins 10 ml/Thiamine HCl 100 mg/Folic Acid 1 mg/Sodium Chloride 1,011.2 ml @ 100 mls/ hr DAILY IV Last administered on 10/19/16 09:26; Start at 09:00; Stop 10/20/16 at 08:59; Status DC Etomidate (Amidate) 20 mg STK-MED ONCE IV ; Start 10/19/16 at 01:55; Stop at 01:56; Status DC Succinylcholine Chloride (Anectine) 200 mg STK-MED ONCE .ROUTE ; Start 10/19/16 at 01:56; Stop 10/19/16 at 01:57; Status DC Levetiracetam 500 mg/Sodium Chloride 100 ml @ 400 mls/hr Q12HR IV Last administered on 10/20/16 20:27; Start 10/19/16 at 09:00; Stop 10/21/16 at 09:16 ; Status DC Multivitamins 10 ml/Folic Acid 1 mg/Thiamine HCl 100 mg/Dextrose/ Sodium Chloride 1,011.2 ml @ 125 mls/ hr DAILY IV Last administered on 10/21/16 09: 38; Start 10/20/16 at 09:00 Multivitamins 10 ml/Thiamine HCl 100 mg/Folic Acid 1 mg/Sodium Chloride 1,011.2 ml @ 100 mls/ hr DAILY IV ; Start 10/20/16 at 09:00; Stop 10/25/16 at 08:59; Status UNV Lorazepam (Ativan) 2 mg Q6H PO Last administered on 10/19/16 17:02; Start at 10:15; Stop 10/19/16 at 19:18; Status DC Pantoprazole Sodium (Protonix Vial) 40 mg DAILY IVP Last administered on 09:13; Start 10/19/16 at 11:00 Enoxaparin Sodium (Lovenox 40mg Syringe) 40 mg Q24H SQ Last administered on 12:58; Start 10/19/16 at 11:00 Throat Lozenges (Cepacol Sore Throat Lozenge) 1 byron PRN Q12HR PRN PO SORE THROAT Last administered on 10/19/16 19:23; Start 10/19/16 at 19:15; Stop 10/20 at 13:13; Status DC Ibuprofen (Motrin) 600 mg PRN Q8HRS PRN PO INFLAMMATION Last administered on 05:31; Start 10/19/16 at 19:15 Chlordiazepoxide (Librium) 50 mg PRN Q1HR PRN PO For CIWA 8-14 Last administered on 10/21/16 09:53; Start 10/19/16 at 19:15 Chlordiazepoxide (Librium) 100 mg PRN Q1HR PRN PO For CIWA 15 or greater; Start 10/19/16 at 19:15 Haloperidol Lactate (Haldol) 5 mg PRN Q4HRS PRN IVP Hallucinatns,Confusn, Delirium; Start 10/19/16 at 19:15 Diphenhydramine HCl (Benadryl) 25 mg PRN Q15MIN PRN IVP EPS symptoms 2'Haldol admin; Start 10/19/16 at 19:15 Clonidine HCl (Catapres) 0.1 mg PRN Q1HR PRN PO SBP > 180 or DBP > 100, MRX3; Start 10/19/16 at 19:15 Ibuprofen (Motrin) 600 mg PRN Q8HRS PRN PO pain; Start 10/19/16 at 19:15; Stop 10/20/16 at 13:12; Status DC Ondansetron HCl (Zofran) 4 mg PRN Q6HRS PRN IV NAUSEA/VOMITING; Start 10/20/16 at 09:45 Throat Lozenges (Cepacol Sore Throat Lozenge) 1 byron PRN Q2HRS PRN PO SORE THROAT Last administered on 10/21/16 09:13; Start 10/20/16 at 12:00 Levetiracetam (Keppra) 500 mg BID PO Last administered on 10/21/16 09:53; Start 10/21/16 at 10:00 Active Scripts Active Keppra (Levetiracetam) 500 Mg Tablet 1 Tab PO BID Vitals/I & O Vital Sign - Last 24 Hours 10/20/16 10/20/16 10/20/16 10/20/16 15:00 19:00 20:00 23:00 Temp 98.0 98.5 98.6 98.0 98.5 98.6 Pulse 77 56 64 Resp 16 18 18 B/P (MAP) 144/83 (103) 127/62 (83) 142/81 (101) Pulse Ox 99 98 92 O2 Delivery Room Air Room Air Room Air Room Air 10/21/16 10/21/16 10/21/16 10/21/16 03:00 07:00 08:00 11:00 Temp 98.3 97.7 97.8 98.3 97.7 97.8 Pulse 62 53 69 Resp 20 16 16 B/P (MAP) 128/60 (82) 134/79 (97) 137/65 (89) Pulse Ox 94 97 98 O2 Delivery Room Air Room Air Room Air Room Air Intake and Output 10/20/16 10/20/16 10/21/16 15:00 23:00 07:00 Intake Total 400 ml 300 ml Output Total 950 ml 1000 ml Balance -550 ml -700 ml LAURA IGLESIAS MD October 21, 2016 12:18
== END 2016-10-21 11:50 | disposition home or self-care (01) | DRG 100 ==
LOC: ER 19:45 → 1 WEST ICU 20:26 → 6 SOUTH 10-19 17:33
PROVIDERS: ADMIT Internal Medicine; ATTEND Internal Medicine
PROC: 5A1935Z Respiratory Ventilation, Less than 24 Consecutive Hours (ICD-10-PCS; principal; 2016-10-19)
PROC: 0BH17EZ Insertion of Endotracheal Airway into Trachea, Via Natural or Artificial Opening (ICD-10-PCS; 2016-10-19)
DX: G40.501 Epileptic seizures related to external causes, not intractable, with status epilepticus (principal); G92 Toxic encephalopathy; J96.00 Acute respiratory failure, unspecified whether with hypoxia or hypercapnia; M62.82 Rhabdomyolysis; F10.10 Alcohol abuse, uncomplicated; F31.9 Bipolar disorder, unspecified; I10 Essential (primary) hypertension; F10.20 Alcohol dependence, uncomplicated; R13.10 Dysphagia, unspecified; Z59.0 Homelessness
CPT/HCPCS: 31500; 36415; 36600; 51702; 70450; 71010; 72125; 80048; 80053; 82550; 82805; 83605; 84484; 85027; 87641; 93005; 94002; 94003; 96374; C9113; G0480; G0481; G6038; J0330; J1650; J1953; J2060; J2405; J2704; J7030; 80196; 92526; 92610; 99291-25